=== PATIENT | female | born 1945 | race Caucasian/White ===

== ENCOUNTER 2017-09-30 07:48 | Inpatient (IN) | payer MEDICARE, MEDICAID ==
[~2017-09-30] VITALS: Ht 157.5 cm; Wt 57.0 kg
[~2017-09-30 07:48] MED LIST: ASPI-611 PO; ATEN50TA PO; CLOP75TA18 PO; FLUT1BLS3 IH; SIMV40TA PO; myrbetriq PO
[2017-09-30] MEDS ORDERED: methylPREDNISolone sod succ 125mg/2ml vial IV ONE (08:05)
[2017-09-30] MEDS ORDERED: ipratropium/albuterol 3ml nebule NEB ONE (08:05)
[2017-09-30 08:39] LABS: BASOPHILS # (AUTO) 0.1 X10'3 (0-0.2); BASOPHILS % (AUTO) 0.5 % (0-1); EOSINOPHILS # (AUTO) 0.1 X10'3 (0-0.9); EOSINOPHILS % (AUTO) 1.3 % (0-6); HEMATOCRIT 37.5 % (35.0-45.0); HEMOGLOBIN 12.8 g/dl (12.0-16.0); LYMPHOCYTES # (AUTO) 1.6 X10'3 (1.1-4.8); LYMPHOCYTES % (AUTO) 14.6 % (21-51); MEAN CORPUSCULAR HEMOGLOBIN 29.6 PG (27.0-31.0); MEAN CORPUSCULAR HGB CONC 34.1 % (33.0-36.5); MEAN CORPUSCULAR VOLUME 86.7 FL (78-98); MEAN PLATELET VOLUME 9.1 FL (7.4-10.4); MONOCYTES # (AUTO) 0.6 X10'3 (0-0.9); NEUTROPHILS # (AUTO) 8.7 X10'3 (1.8-7.7); NEUTROPHILS % (AUTO) 78.6 % (42-75); PLATELET COUNT 209 X10'3 (140-440); RED BLOOD COUNT 4.32 X10'6 (4.20-5.60); RED CELL DISTRIBUTION WIDTH 14.7 % (11.5-14.5); WHITE BLOOD COUNT 11.1 X10'3 (4.5-11.0)
[2017-09-30 08:49] LABS: PARTIAL THROMBOPLASTIN TIME 27 SECONDS (22-32); PROTHROMBIN TIME 10.1 SECONDS (9.0-12.0)
[2017-09-30 08:53] LABS: ALANINE AMINOTRANSFERASE 17 U/L (12-78); ALBUMIN 3.8 G/DL (3.4-5.0); ALBUMIN/GLOBULIN RATIO 1.1 (1.1-1.5); ALKALINE PHOSPHATASE 61 IU/L (46-116); ANION GAP 10 (8-16); ASPARTATE AMINO TRANSFERASE 18 U/L (10-37); BILIRUBIN,TOTAL 0.5 MG/DL (0.1-1.0); BLOOD UREA NITROGEN 8 MG/DL (7-18); BUN/CREATININE RATIO 8.9 (6.6-38.0); CALCIUM 8.6 MG/DL (8.5-10.1); CHLORIDE 103 MMOL/L (99-107); GLUCOSE 120 MG/DL (70-104); POTASSIUM 3.6 MMOL/L (3.5-5.1); SODIUM 141 MMOL/L (135-145); TOTAL CARBON DIOXIDE 28.4 MMOL/L (24-32); TOTAL PROTEIN 7.2 G/DL (6.4-8.2); eGFR 61 ML/MIN
[2017-09-30] MEDS ORDERED: normal saline 1000ML IV soln IV ONE (09:05)
[2017-09-30] MEDS ORDERED: levoFLOXACIN-Levaquin 750MG/D5 150 ML IV ONE (09:05)
[2017-09-30] MEDS ORDERED: ATEN-169 PO (09:27)
[2017-09-30] MEDS ORDERED: SERT25TA PO (09:27)
[2017-09-30] MEDS ORDERED: CLOP75TA35 PO (09:27)
[2017-09-30] MEDS ORDERED: FAMO20TA8 PO (09:27)
[2017-09-30] MEDS ORDERED: ZOC5T PO (09:27)
[2017-09-30] MEDS ORDERED: normal saline 1000ml 1,000 ML IV SCH (09:33)
[2017-09-30 09:35] LABS: ABG BASE EXCESS -1.7 mmol/L (-2.0-3.0); ABG HCO3 23.2 mmol/L (22.0-26.0); ABG OXYGEN SATURATION 87.7 % (95-98); ABG PCO2 (T) 40.1 mmHg (32.0-45.0); ABG PH (T) 7.381 (7.350-7.450); ABG PO2 (T) 53.6 mmHg (83-108); ALLEN'S TEST Positive; FMetHb 0.2 % (0.3-1.12); FO2Hb 86.6 % (94-100); TOTAL HEMOGLOBIN 13.2 G/dl (12.0-16.0)
[2017-09-30] MEDS ORDERED: magnesium/D5W IVPB 50 ML IV PRN (09:35)
[2017-09-30] MEDS ORDERED: magnesium hydroxide 30ml (MOM) UD suspension PO PRN (09:35)
[2017-09-30] MEDS ORDERED: mag hydrox/Alum hydrox/simeth 30ml oral suspension PO PRN (09:35)
[2017-09-30] MEDS ORDERED: albuterol 2.5 MG/3 ML nebule NEB PRN (09:35)
[2017-09-30] MEDS ORDERED: acetaminophen 325mg tablet PO PRN ×2 (09:35)
[2017-09-30] MEDS ORDERED: potassium Cl 40MEQ/NS 500ml 500 ML IV PRN ×2 (09:35)
[2017-09-30] MEDS ORDERED: magnesium 4gm in 100ml NS 100 ML IV PRN (09:35)
[2017-09-30] MEDS ORDERED: magnesium Cl slow-release 64mg tablet PO PRN (09:35)
[2017-09-30] MEDS ORDERED: ondansetron/PF 4mg/2ml inj IV PRN (09:35)
[2017-09-30] MEDS ORDERED: potassium Cl 20 mEq SR tablet PO PRN ×2 (09:35)
[2017-09-30 11:00] VITALS: BP 124/58
[2017-09-30] MEDS ORDERED: nicotine 14mg patch - 24hr TD ONE (14:40)
[2017-09-30] MEDS: traMADol 50MG tablet PO PRN (14:58)
[2017-09-30 18:00] VITALS: BP 130/76
[2017-09-30] MEDS ORDERED: LACTOSE-FREE FOOD 237ML (BOOST) PO SCH (18:00)
[2017-09-30] MEDS ORDERED: atorvastatin 20mg tablet PO SCH (21:00)
[2017-09-30] MEDS: famotidine 20mg tablet PO SCH (21:07)
[2017-09-30] MEDS: lactobacillus rhamnosus 10,000 MMU CELLS/CAPSULE PO SCH (21:07)
[2017-10-01] VITALS: BP 121/44
[2017-10-01] MEDS: traMADol 50MG tablet PO PRN (03:27)
[2017-10-01 05:11] LABS: BASOPHILS % (AUTO) 0.2 % (0-1); EOSINOPHILS % (AUTO) 0 % (0-6); HEMATOCRIT 30.3 % (35.0-45.0); HEMOGLOBIN 10.2 g/dl (12.0-16.0); LYMPHOCYTES % (AUTO) 12.2 % (21-51); MEAN CORPUSCULAR HEMOGLOBIN 29.3 PG (27.0-31.0); MEAN CORPUSCULAR HGB CONC 33.6 % (33.0-36.5); MEAN PLATELET VOLUME 9.1 FL (7.4-10.4); MONOCYTES # (AUTO) 0.6 X10'3 (0-0.9); NEUTROPHILS # (AUTO) 6.3 X10'3 (1.8-7.7); NEUTROPHILS % (AUTO) 79.6 % (42-75); PLATELET COUNT 171 X10'3 (140-440); RED BLOOD COUNT 3.49 X10'6 (4.20-5.60); RED CELL DISTRIBUTION WIDTH 14.5 % (11.5-14.5); WHITE BLOOD COUNT 7.9 X10'3 (4.5-11.0)
[2017-10-01 06:27] LABS: ALBUMIN 2.8 G/DL (3.4-5.0); ANION GAP 9 (8-16); BLOOD UREA NITROGEN 12 MG/DL (7-18); BUN/CREATININE RATIO 15.2 (6.6-38.0); CALCIUM 8.3 MG/DL (8.5-10.1); CHLORIDE 108 MMOL/L (99-107); CREATININE 0.79 MG/DL (0.40-0.90); GLUCOSE 118 MG/DL (70-104); MAGNESIUM 1.7 MG/DL (1.5-2.4); POTASSIUM 4.3 MMOL/L (3.5-5.1); SODIUM 141 MMOL/L (135-145); TOTAL CARBON DIOXIDE 24.5 MMOL/L (24-32); eGFR 71 ML/MIN
[2017-10-01 07:23] VITALS: BP 133/50
[2017-10-01] MEDS: lactobacillus rhamnosus 10,000 MMU CELLS/CAPSULE PO SCH (07:35)
[2017-10-01] MEDS: famotidine 20mg tablet PO SCH (07:35)
[2017-10-01] MEDS: albuterol 2.5 MG/3 ML nebule NEB PRN ×2 (07:48→12:20)
[2017-10-01] MEDS ORDERED: sertraline 25mg tablet PO SCH (08:00)
[2017-10-01] MEDS ORDERED: enoxaparin 40mg/0.4ml syringe SQ SCH (08:00)
[2017-10-01] MEDS ORDERED: clopidogrel 75mg tablet PO SCH (08:00)
[2017-10-01] MEDS ORDERED: atenolol 50mg tablet PO SCH (08:00)
[2017-10-01] MEDS ORDERED: methylPREDNISolone sod succ 125mg/2ml vial IV SCH (08:00)
[2017-10-01] MEDS ORDERED: CefTRIAXone 2gm/D5W 50ml 50 ML IV SCH (08:00)
[2017-10-01] MEDS ORDERED: nicotine 21mg patch - 24 hr TD SCH (08:00)
[2017-10-01] MEDS ORDERED: K and/or MAG REPLACEMENT MC SCH (08:00)
[2017-10-01] MEDS ORDERED: ALBU2.5V7 NEB (11:58)
[2017-10-01] MEDS ORDERED: PRED10TA23 PO (11:58)
[2017-10-01] MEDS ORDERED: LEVO500T2 PO (11:58)
[2017-10-01 12:10] VITALS: BP 110/50
[2017-10-01] MEDS ORDERED: NICO-731 TOP (14:32)
[2017-10-01] MEDS ORDERED: ADV50250 IH (14:32)
== END 2017-10-01 17:02 | disposition home or self-care (01) | DRG 189 ==
LOC: ER 07:51 → ED HOLD 09:33 → EDBEDREQ 10:14 → SUR 3N 10:57
PROVIDERS: ADMIT Internal Medicine; ATTEND Internal Medicine
DX: J96.01 Acute respiratory failure with hypoxia (principal); J44.1 Chronic obstructive pulmonary disease with (acute) exacerbation; J44.0 Chronic obstructive pulmonary disease with (acute) lower respiratory infection; J20.9 Acute bronchitis, unspecified; E78.00 Pure hypercholesterolemia, unspecified; F17.210 Nicotine dependence, cigarettes, uncomplicated; F41.9 Anxiety disorder, unspecified; I10 Essential (primary) hypertension; Z60.2 Problems related to living alone; I25.2 Old myocardial infarction; Z95.1 Presence of aortocoronary bypass graft; Z95.5 Presence of coronary angioplasty implant and graft; Z98.51 Tubal ligation status; Z88.5 Allergy status to narcotic agent; Z79.02 Long term (current) use of antithrombotics/antiplatelets; Z79.899 Other long term (current) drug therapy; Z82.49 Family history of ischemic heart disease and other diseases of the circulatory system; Z71.6 Tobacco abuse counseling
CPT/HCPCS: 36415; 36600; 71045; 80048; 80053; 82803; 83735; 84484; 85018; 85025; 85610; 85730; 87040; 87070; 94640; 94760; 96374; 99285; J0696; J1650; J1956; J2930; J7030

== ENCOUNTER 2019-04-27 13:43 | Observation (INO) | payer MEDICARE, MEDICAID ==
[~2019-04-27] VITALS: Ht 157.5 cm; Wt 59.1 kg
[~2019-04-27 13:43] MED LIST changes: +ALB0.5UD IH; -ASPI-611 PO; +ATEN-169 PO; -ATEN50TA PO; -CLOP75TA18 PO; -FLUT1BLS3 IH; +PANT-47 PO; +SERT25TA PO; -myrbetriq PO
[2019-04-27] MEDS ORDERED: methylPREDNISolone sod succ 125mg/2ml vial IV ONE (13:50)
[2019-04-27] MEDS ORDERED: normal saline 1000ML IV soln IVB ONE (13:50)
[2019-04-27] MEDS ORDERED: ipratropium/albuterol 3ml nebule NEB ONE (13:50)
[2019-04-27 14:12] LABS: BASOPHILS # (AUTO) 0.1 X10'3 (0-0.2); BASOPHILS % (AUTO) 0.9 % (0-1); EOSINOPHILS # (AUTO) 0.2 X10'3 (0-0.9); EOSINOPHILS % (AUTO) 3.3 % (0-6); HEMOGLOBIN 12.9 g/dl (12.0-16.0); LYMPHOCYTES # (AUTO) 1.9 X10'3 (1.1-4.8); LYMPHOCYTES % (AUTO) 27.6 % (21-51); MEAN CORPUSCULAR HEMOGLOBIN 28.7 PG (27.0-31.0); MEAN PLATELET VOLUME 8.6 FL (7.4-10.4); MONOCYTES # (AUTO) 0.6 X10'3 (0-0.9); NEUTROPHILS # (AUTO) 4.2 X10'3 (1.8-7.7); NEUTROPHILS % (AUTO) 60.2 % (42-75); PLATELET COUNT 212 X10'3 (140-440); RED BLOOD COUNT 4.48 X10'6 (4.20-5.60); RED CELL DISTRIBUTION WIDTH 14.9 % (11.5-14.5)
--- NOTE | 2019-04-27 14:17 | NUR ---
FRIEND MELODY PHONE NUMBER: [phone] [facility] WORKER, YOHANNES: [phone]
--- NOTE | 2019-04-27 14:18 | NUR ---
breathing tx underway;rt bedside
[2019-04-27 14:32] LABS: ALANINE AMINOTRANSFERASE 23 U/L (12-78); ALBUMIN/GLOBULIN RATIO 1.4 (1.1-1.5); ALKALINE PHOSPHATASE 68 IU/L (46-116); ANION GAP 8 (8-16); ASPARTATE AMINO TRANSFERASE 18 U/L (10-37); BILIRUBIN,TOTAL 0.3 MG/DL (0.1-1.0); BLOOD UREA NITROGEN 12 MG/DL (7-18); BUN/CREATININE RATIO 14.3 (6.6-38.0); CALCIUM 8.7 MG/DL (8.5-10.1); CHLORIDE 110 MMOL/L (99-107); CREATININE 0.84 MG/DL (0.40-0.90); GLUCOSE 90 MG/DL (70-104); POTASSIUM 4.6 MMOL/L (3.5-5.1); SODIUM 145 MMOL/L (135-145); TOTAL CARBON DIOXIDE 27.2 MMOL/L (24-32); TOTAL PROTEIN 6.9 G/DL (6.4-8.2); eGFR 66 ML/MIN
[2019-04-27] MEDS ORDERED: aspirin 81mg tab.chew PO ONE (15:20)
[2019-04-27] MEDS ORDERED: nitroGLYCERIN 1gm ointment UD TP ONE (15:20)
[2019-04-27] MEDS ORDERED: morphine 2 MG/ML inj. syringe IV PRN ×2 (15:30)
[2019-04-27] MEDS ORDERED: magnesium hydroxide 30ml (MOM) UD suspension PO PRN (15:30)
[2019-04-27] MEDS ORDERED: acetaminophen 325mg tablet PO PRN ×2 (15:30)
[2019-04-27] MEDS ORDERED: ondansetron/PF 4mg/2ml inj IV PRN (15:30)
[2019-04-27] MEDS ORDERED: mag hydrox/Alum hydrox/simeth 30ml oral suspension PO PRN (15:30)
[2019-04-27] MEDS ORDERED: ROPI0.5T2 PO (15:47)
[2019-04-27] MEDS ORDERED: PRED5DRO3 EACHEYE (15:47)
[2019-04-27] MEDS ORDERED: TRAM50TA2 PO (15:47)
[2019-04-27] MEDS ORDERED: ASPI-12 PO (15:58)
[2019-04-27] MEDS ORDERED: ATR0.5NEB NEB (16:01)
[2019-04-27 17:37] LABS: HEMOGLOBIN A1C 5.5 % (4.5-6.2)
[2019-04-27] MEDS: HYDROcodone/acetaminophen 5mg/325mg tablet PO PRN (17:49)
[2019-04-27 18:00] VITALS: BP_SYST 146; BP_SYST 151; BP_DIAS 62; BP_DIAS 68
--- NOTE | 2019-04-27 18:00 | NUR ---
Patient in room PADMINI 360. I have received report from MAIA GARCIA and had the opportunity to ask questions and assume patient care.
[2019-04-27] MEDS ORDERED: aspirin 325mg tablet, delayed-release (Ecotrin) PO PRN (18:05)
[2019-04-27] MEDS ORDERED: levoFLOXACIN-Levaquin 750MG/D5 150 ML IV SCH (18:24)
[2019-04-27] MEDS ORDERED: furosemide 20 MG/2 ML vial IV ONE (18:25)
--- NOTE | 2019-04-27 18:47 | NUR ---
Problems reprioritized. Patient report given, questions answered & plan of care reviewed with Aurora dorado.
[2019-04-27] MEDS: atorvastatin 20mg tablet PO SCH (21:16)
[2019-04-27] MEDS: ROPINIRole 0.25mg tablet PO SCH (21:16)
[2019-04-27] MEDS: atenolol 50mg tablet PO SCH (21:17)
[2019-04-27] MEDS: methylPREDNISolone sod succ 125mg/2ml vial IV SCH (23:15)
[2019-04-28] VITALS: BP 112/50
[2019-04-28 02:33] LABS: BASOPHILS % (AUTO) 0.2 % (0-1); EOSINOPHILS % (AUTO) 0 % (0-6); HEMOGLOBIN 12.1 g/dl (12.0-16.0); LYMPHOCYTES # (AUTO) 0.9 X10'3 (1.1-4.8); LYMPHOCYTES % (AUTO) 9.9 % (21-51); MEAN CORPUSCULAR HEMOGLOBIN 28.9 PG (27.0-31.0); MEAN CORPUSCULAR HGB CONC 33.7 g/dL (33.0-36.5); MEAN CORPUSCULAR VOLUME 85.8 FL (78-98); MEAN PLATELET VOLUME 8.8 FL (7.4-10.4); MONOCYTES # (AUTO) 0.1 X10'3 (0-0.9); MONOCYTES % (AUTO) 0.9 % (2-12); NEUTROPHILS # (AUTO) 7.7 X10'3 (1.8-7.7); PLATELET COUNT 213 X10'3 (140-440); RED CELL DISTRIBUTION WIDTH 14.2 % (11.5-14.5); WHITE BLOOD COUNT 8.6 X10'3 (4.5-11.0)
[2019-04-28 02:38] LABS: ALBUMIN 3.7 G/DL (3.4-5.0); ANION GAP 9 (8-16); BLOOD UREA NITROGEN 22 MG/DL (7-18); BUN/CREATININE RATIO 21.6 (6.6-38.0); CALCIUM 8.9 MG/DL (8.5-10.1); CHLORIDE 108 MMOL/L (99-107); CHOL/HDL RATIO 3.1 (0.00-4.99); CHOLESTEROL 138 MG/DL (0-200); CREATININE 1.02 MG/DL (0.40-0.90); GLUCOSE 147 MG/DL (70-104); HDL CHOLESTEROL 44 MG/DL (35-60); LDL CHOLESTEROL 82 MG/DL (50-100); POTASSIUM 3.9 MMOL/L (3.5-5.1); SODIUM 142 MMOL/L (135-145); TOTAL CARBON DIOXIDE 25.1 MMOL/L (24-32); TRIGLYCERIDES 50 MG/DL (20-135); eGFR 53 ML/MIN
--- NOTE | 2019-04-28 06:25 | NUR ---
Patient in room PADMINI 360. I have received report from RADHA Moyer and had the opportunity to ask questions and assume patient care.
--- NOTE | 2019-04-28 06:26 | NUR ---
Problems reprioritized. Patient report given, questions answered & plan of care reviewed with Patria RN.
[2019-04-28 06:30] VITALS: BP 137/54
[2019-04-28] MEDS: ipratropium 0.5 MG/2.5ML nebule NEB PRN ×2 (07:25→16:58)
[2019-04-28] MEDS: traMADol 50MG tablet PO SCH (09:20)
[2019-04-28] MEDS: methylPREDNISolone sod succ 125mg/2ml vial IV SCH ×2 (09:23→16:41)
[2019-04-28] MEDS: HYDROcodone/acetaminophen 5mg/325mg tablet PO PRN (10:50)
[2019-04-28 11:00] VITALS: BP 127/55
--- NOTE | 2019-04-28 11:53 | NUR ---
Malnutrition consult: Pt unsure if she has had any wt loss however reports a decrease in appetite per malnutrition risk screen with RN. All wt hx is pt stated however stable with current pt stated weight. Pt currently on heart healthy diet documented with 50-75% PO intake first meal then up to 100% at breakfast this morning meeting nutrient needs. Pt with no significant decrease in muscle strength or edema. Pt currently does not meet criteria for malnutrition. Will continue to follow. Addendum: 04/28/19 at [address] Amended: Links added.
--- NOTE | 2019-04-28 18:15 | NUR ---
Problems reprioritized. Patient report given, questions answered & plan of care reviewed with RADHA Mccormick.
--- NOTE | 2019-04-28 19:29 | NUR ---
Patient in room PADMINI 360. I have received report from Rimma GARCIA and Vesta GARCIA and had the opportunity to ask questions and assume patient care.
[2019-04-28] MEDS: lactobacillus rhamnosus 10,000 MMU CELLS/CAPSULE PO SCH (20:34)
[2019-04-28] MEDS: atorvastatin 20mg tablet PO SCH (20:35)
[2019-04-28] MEDS: atenolol 50mg tablet PO SCH (20:35)
[2019-04-28] MEDS: ROPINIRole 0.25mg tablet PO SCH (20:35)
[2019-04-29 00:20] VITALS: BP 111/44
[2019-04-29] MEDS: methylPREDNISolone sod succ 125mg/2ml vial IV SCH ×2 (00:39→09:12)
[2019-04-29 05:10] LABS: BASOPHILS % (AUTO) 0 % (0-1); EOSINOPHILS % (AUTO) 0 % (0-6); HEMATOCRIT 35.4 % (35.0-45.0); HEMOGLOBIN 11.8 g/dl (12.0-16.0); LYMPHOCYTES # (AUTO) 0.9 X10'3 (1.1-4.8); MEAN CORPUSCULAR HEMOGLOBIN 28.6 PG (27.0-31.0); MEAN CORPUSCULAR HGB CONC 33.4 g/dL (33.0-36.5); MEAN CORPUSCULAR VOLUME 85.7 FL (78-98); MONOCYTES # (AUTO) 0.2 X10'3 (0-0.9); MONOCYTES % (AUTO) 1.6 % (2-12); NEUTROPHILS # (AUTO) 13.8 X10'3 (1.8-7.7); NEUTROPHILS % (AUTO) 92.4 % (42-75); PLATELET COUNT 227 X10'3 (140-440); RED BLOOD COUNT 4.13 X10'6 (4.20-5.60); RED CELL DISTRIBUTION WIDTH 14.5 % (11.5-14.5); WHITE BLOOD COUNT 14.9 X10'3 (4.5-11.0)
[2019-04-29 05:22] LABS: ALBUMIN 3.5 G/DL (3.4-5.0); ANION GAP 8 (8-16); BLOOD UREA NITROGEN 28 MG/DL (7-18); BUN/CREATININE RATIO 31.5 (6.6-38.0); CALCIUM 8.6 MG/DL (8.5-10.1); CHLORIDE 109 MMOL/L (99-107); CREATININE 0.89 MG/DL (0.40-0.90); GLUCOSE 140 MG/DL (70-104); POTASSIUM 4.1 MMOL/L (3.5-5.1); SODIUM 142 MMOL/L (135-145); TOTAL CARBON DIOXIDE 24.8 MMOL/L (24-32); eGFR 62 ML/MIN
--- NOTE | 2019-04-29 06:25 | NUR ---
Patient in room PADMINI 360. I have received report from RADHA Mccormick and had the opportunity to ask questions and assume patient care.
[2019-04-29 06:30] VITALS: BP 149/50
--- NOTE | 2019-04-29 06:31 | NUR ---
Problems reprioritized. Patient report given, questions answered & plan of care reviewed with Patria RN.
[2019-04-29] MEDS: ipratropium 0.5 MG/2.5ML nebule NEB PRN ×2 (07:58→13:33)
[2019-04-29] MEDS: lactobacillus rhamnosus 10,000 MMU CELLS/CAPSULE PO SCH (09:12)
[2019-04-29] MEDS: traMADol 50MG tablet PO SCH (09:13)
[2019-04-29 11:00] VITALS: BP 136/58
[2019-04-29] MEDS ORDERED: levoFLOXACIN 750MG TABLET PO SCH (11:00)
[2019-04-29] MEDS ORDERED: LEVO750T21 PO (12:18)
[2019-04-29] MEDS ORDERED: PRED20TA PO (12:18)
--- NOTE | 2019-04-29 14:25 | NUR ---
DC inst provided to pt. IV DC'd, tip intact. All belongings sent w/pt. WC to front lobby.
--- NOTE | 2019-05-03 09:31 | NUR ---
Case Management DC follow up: spoke to pt via telephone: reports feeling better everyday, has not smoked since DC. Trying to stay busy to get mind of smoking. Stated patch gave her nightmares at the hospital, would like to try the nicotine gum instead. Pt has follow up erasmo 05/18/2019 w/PCP/Flor and will ask about other alternatives including magdy gum. pt states, "I like that ([facility] hospital, they take good care of me". Caregiver comes to home 3.5 hours each day to tend to pt needs. pt states she gets "a little winded" sometimes w/exertion et al, going out side to empty garbage, but denies excessive SOB, resp distress, cp, emergent general pain, NV, dizziness. Denies experiencing orthostatic hypotension w/position changes. pt has walker, but does not need to use it all the time. productive cough, drinking plenty of fluids, does not lie flat r/t lung expansion. Verbalizes understanding of meds and why prescribed, taking as ordered, no ase noted at this time. verbalizes understanding of s/s that would warrant 9-11/ER visit for evaluation. All needs met, questions answered at DC, no further questions at this time
== END 2019-04-29 14:27 | disposition home or self-care (01) ==
LOC: ER 13:44 → ED HOLD 15:28 → SUR 3N 17:55
PROVIDERS: ADMIT Internal Medicine; ATTEND Internal Medicine
DX: J44.1 Chronic obstructive pulmonary disease with (acute) exacerbation (principal); J44.0 Chronic obstructive pulmonary disease with (acute) lower respiratory infection; J20.9 Acute bronchitis, unspecified; I10 Essential (primary) hypertension; G25.0 Essential tremor; E78.5 Hyperlipidemia, unspecified; I25.2 Old myocardial infarction; E78.00 Pure hypercholesterolemia, unspecified; F17.210 Nicotine dependence, cigarettes, uncomplicated; Z95.5 Presence of coronary angioplasty implant and graft; Z98.51 Tubal ligation status; Z95.1 Presence of aortocoronary bypass graft; Z66 Do not resuscitate; Z79.51 Long term (current) use of inhaled steroids; Z79.899 Other long term (current) drug therapy; Z88.5 Allergy status to narcotic agent
CPT/HCPCS: 36415; 71045; 80048; 80053; 80061; 83036; 83880; 84484; 85025; 87081; 93005; 94640; 94760; 96365; 96375; 96376; 99284; G0378; J1940; J1956; J2930; J7030

== ENCOUNTER 2019-06-27 08:01 | Emergency (ER) | payer MEDICARE, MEDICAID ==
[~2019-06-27] VITALS: Ht 157.5 cm; Wt 58.6 kg
[~2019-06-27 08:01] MED LIST changes: -ALB0.5UD IH; +ASPI-12 PO; +ATR0.5NEB NEB; -PANT-47 PO; +ROPI0.5T4 PO; -SERT25TA PO; +TRAM50TA2 PO
[2019-06-27] MEDS ORDERED: ipratropium/albuterol 3ml nebule NEB ONE (08:10)
[2019-06-27] MEDS ORDERED: methylPREDNISolone sod succ 125mg/2ml vial IV ONE (08:10)
[2019-06-27 08:38] LABS: BASOPHILS # (AUTO) 0.1 X10'3 (0-0.2); EOSINOPHILS # (AUTO) 0.2 X10'3 (0-0.9); EOSINOPHILS % (AUTO) 2.5 % (0-6); HEMATOCRIT 40.2 % (35.0-45.0); HEMOGLOBIN 13.3 g/dl (12.0-16.0); LYMPHOCYTES # (AUTO) 2.4 X10'3 (1.1-4.8); LYMPHOCYTES % (AUTO) 31.3 % (21-51); MEAN CORPUSCULAR HEMOGLOBIN 28.8 PG (27.0-31.0); MEAN CORPUSCULAR HGB CONC 33.2 g/dL (33.0-36.5); MEAN CORPUSCULAR VOLUME 86.9 FL (78-98); MEAN PLATELET VOLUME 9.1 FL (7.4-10.4); MONOCYTES # (AUTO) 0.5 X10'3 (0-0.9); MONOCYTES % (AUTO) 6.9 % (2-12); NEUTROPHILS # (AUTO) 4.4 X10'3 (1.8-7.7); NEUTROPHILS % (AUTO) 58.3 % (42-75); PLATELET COUNT 205 X10'3 (140-440); RED BLOOD COUNT 4.63 X10'6 (4.20-5.60); WHITE BLOOD COUNT 7.6 X10'3 (4.5-11.0)
[2019-06-27 08:42] LABS: ALANINE AMINOTRANSFERASE 19 U/L (12-78); ALBUMIN 4.1 G/DL (3.4-5.0); ALBUMIN/GLOBULIN RATIO 1.3 (1.1-1.5); ALKALINE PHOSPHATASE 63 IU/L (46-116); ANION GAP 7 (8-16); ASPARTATE AMINO TRANSFERASE 21 U/L (10-37); BILIRUBIN,TOTAL 0.4 MG/DL (0.1-1.0); BLOOD UREA NITROGEN 12 MG/DL (7-18); BUN/CREATININE RATIO 13.5 (6.6-38.0); CALCIUM 9.3 MG/DL (8.5-10.1); CHLORIDE 108 MMOL/L (99-107); CREATININE 0.89 MG/DL (0.40-0.90); GLUCOSE 108 MG/DL (70-104); POTASSIUM 4.1 MMOL/L (3.5-5.1); SODIUM 143 MMOL/L (135-145); TOTAL CARBON DIOXIDE 27.9 MMOL/L (24-32); TOTAL PROTEIN 7.2 G/DL (6.4-8.2); eGFR 62 ML/MIN
[2019-06-27] MEDS ORDERED: PRED20TA PO (09:01)
[2019-06-27 09:47] VITALS: BP 134/71
== END 2019-06-27 09:38 | disposition home or self-care (01) ==
LOC: ER 08:01
DX: J44.1 Chronic obstructive pulmonary disease with (acute) exacerbation (principal); E78.00 Pure hypercholesterolemia, unspecified; I10 Essential (primary) hypertension; I25.2 Old myocardial infarction; F17.200 Nicotine dependence, unspecified, uncomplicated; Z95.0 Presence of cardiac pacemaker; Z98.51 Tubal ligation status; Z88.5 Allergy status to narcotic agent; Z79.899 Other long term (current) drug therapy
CPT/HCPCS: 36415; 71045; 80053; 83880; 85025; 93005; 94640; 96374; 99285; J2930; 94760

== ENCOUNTER 2020-01-31 11:55 | Emergency (ER) | payer MEDICARE, MEDICAID ==
[~2020-01-31] VITALS: Ht 157.5 cm; Wt 58.0 kg
[2020-01-31] MEDS ORDERED: predniSONE 20 mg tablet PO ONE (12:05)
[2020-01-31] MEDS ORDERED: ipratropium/albuterol 3ml nebule NEB ONE (12:05)
[2020-01-31 12:49] LABS: BASOPHILS % (AUTO) 0.7 % (0-1); EOSINOPHILS # (AUTO) 0.2 X10'3 (0-0.9); EOSINOPHILS % (AUTO) 3.1 % (0-6); HEMATOCRIT 37.1 % (35.0-45.0); HEMOGLOBIN 12.3 g/dl (12.0-16.0); LYMPHOCYTES # (AUTO) 2.2 X10'3 (1.1-4.8); LYMPHOCYTES % (AUTO) 33.5 % (21-51); MEAN CORPUSCULAR HEMOGLOBIN 29.2 PG (27.0-31.0); MEAN CORPUSCULAR HGB CONC 33.2 g/dL (33.0-36.5); MEAN CORPUSCULAR VOLUME 87.9 FL (78-98); MEAN PLATELET VOLUME 8.6 FL (7.4-10.4); MONOCYTES # (AUTO) 0.6 X10'3 (0-0.9); MONOCYTES % (AUTO) 8.7 % (2-12); NEUTROPHILS # (AUTO) 3.6 X10'3 (1.8-7.7); PLATELET COUNT 187 X10'3 (140-440); RED BLOOD COUNT 4.22 X10'6 (4.20-5.60); RED CELL DISTRIBUTION WIDTH 14.6 % (11.5-14.5); WHITE BLOOD COUNT 6.7 X10'3 (4.5-11.0)
[2020-01-31 13:08] LABS: ALANINE AMINOTRANSFERASE 11 U/L (12-78); ALBUMIN/GLOBULIN RATIO 1.4 (1.1-1.5); ALKALINE PHOSPHATASE 64 IU/L (46-116); ANION GAP 9 (8-16); ASPARTATE AMINO TRANSFERASE 18 U/L (10-37); BILIRUBIN,TOTAL 0.5 MG/DL (0.1-1.0); BLOOD UREA NITROGEN 16 MG/DL (7-18); BUN/CREATININE RATIO 20.8 (6.6-38.0); CALCIUM 8.9 MG/DL (8.5-10.1); CHLORIDE 104 MMOL/L (99-107); CREATININE 0.77 MG/DL (0.40-0.90); GLUCOSE 126 MG/DL (70-104); SODIUM 143 MMOL/L (135-145); TOTAL CARBON DIOXIDE 29.8 MMOL/L (24-32); TOTAL PROTEIN 6.9 G/DL (6.4-8.2); eGFR 73 ML/MIN
[2020-01-31] MEDS ORDERED: AZIT-72 PO (13:25)
[2020-01-31] MEDS ORDERED: PRED20TA PO (13:25)
[2020-01-31 13:38] VITALS: BP 130/57
== END 2020-01-31 13:45 | disposition home or self-care (01) ==
LOC: ER 11:56
DX: J44.1 Chronic obstructive pulmonary disease with (acute) exacerbation (principal); E78.00 Pure hypercholesterolemia, unspecified; I10 Essential (primary) hypertension; I21.9 Acute myocardial infarction, unspecified; F17.200 Nicotine dependence, unspecified, uncomplicated; R42 Dizziness and giddiness; Z98.890 Other specified postprocedural states; Z88.5 Allergy status to narcotic agent; Z88.1 Allergy status to other antibiotic agents; Z88.6 Allergy status to analgesic agent; Z88.8 Allergy status to other drugs, medicaments and biological substances
CPT/HCPCS: 36415; 71045; 80053; 83880; 84484; 85025; 93005; 94640; 99285; J7512; 94760

== ENCOUNTER 2020-06-18 21:51 | Emergency (ER) | payer MEDICARE, MEDICAID ==
[~2020-06-18] VITALS: Ht 157.5 cm; Wt 57.3 kg
[2020-06-18] MEDS ORDERED: acetaminophen 325mg tablet PO ONE (22:15)
[2020-06-18 22:27] LABS: BASOPHILS # (AUTO) 0.1 X10'3 (0-0.2); BASOPHILS % (AUTO) 0.7 % (0-1); EOSINOPHILS # (AUTO) 0.2 X10'3 (0-0.9); EOSINOPHILS % (AUTO) 2.4 % (0-6); HEMOGLOBIN 12.5 g/dl (12.0-16.0); LYMPHOCYTES # (AUTO) 2.7 X10'3 (1.1-4.8); LYMPHOCYTES % (AUTO) 27.1 % (21-51); MEAN CORPUSCULAR HEMOGLOBIN 28.9 PG (27.0-31.0); MEAN CORPUSCULAR HGB CONC 32.9 g/dL (33.0-36.5); MEAN CORPUSCULAR VOLUME 87.9 FL (78-98); MONOCYTES # (AUTO) 0.9 X10'3 (0-0.9); MONOCYTES % (AUTO) 8.8 % (2-12); PLATELET COUNT 246 X10'3 (140-440); RED BLOOD COUNT 4.32 X10'6 (4.20-5.60); RED CELL DISTRIBUTION WIDTH 14.4 % (11.5-14.5); WHITE BLOOD COUNT 9.8 X10'3 (4.5-11.0)
[2020-06-18 22:52] LABS: ALANINE AMINOTRANSFERASE 16 U/L (12-78); ALBUMIN/GLOBULIN RATIO 1.2 (1.1-1.5); ALKALINE PHOSPHATASE 76 IU/L (46-116); ANION GAP 8 (8-16); ASPARTATE AMINO TRANSFERASE 17 U/L (10-37); BILIRUBIN,TOTAL 0.3 MG/DL (0.1-1.0); BLOOD UREA NITROGEN 20 MG/DL (7-18); BUN/CREATININE RATIO 20.6 (6.6-38.0); CALCIUM 9.3 MG/DL (8.5-10.1); CHLORIDE 104 MMOL/L (99-107); CREATININE 0.97 MG/DL (0.40-0.90); GLUCOSE 102 MG/DL (70-104); POTASSIUM 4.9 MMOL/L (3.5-5.1); SODIUM 141 MMOL/L (135-145); TOTAL CARBON DIOXIDE 28.8 MMOL/L (24-32); TOTAL PROTEIN 7.3 G/DL (6.4-8.2); eGFR 56 ML/MIN
[2020-06-18] MEDS ORDERED: morphine 2 MG/ML inj. syringe IV ONE (23:35)
[2020-06-18] MEDS ORDERED: iohexol 350MG/ML 100ml bottle IV ONE (23:43)
--- NOTE | 2020-06-19 02:00 | NUR ---
asssumed care of patient resting peacfully supine . all vss , no changes to previous head to toe assessment . pt verbalizes being comfortable and denies any needs at this time . will continue to monitor and reassess as needed
--- NOTE | 2020-06-19 02:30 | NUR ---
pt up to bathrooom ambulated independently . pt notified that in patient room assignment will not occur until later this am . pt verbalized understanding . warm blankets given
--- NOTE | 2020-06-19 04:34 | NUR ---
UP OUT OF BED TO BATHROOM
[2020-06-19 05:19] VITALS: BP 115/58
== END 2020-06-19 05:15 | disposition home or self-care (01) ==
LOC: ER 21:51
DX: M79.602 Pain in left arm (principal); E78.00 Pure hypercholesterolemia, unspecified; I10 Essential (primary) hypertension; I25.2 Old myocardial infarction; J44.9 Chronic obstructive pulmonary disease, unspecified; Z95.5 Presence of coronary angioplasty implant and graft; Z86.718 Personal history of other venous thrombosis and embolism; Z98.51 Tubal ligation status; Z88.8 Allergy status to other drugs, medicaments and biological substances; Z79.899 Other long term (current) drug therapy; Z95.828 Presence of other vascular implants and grafts
CPT/HCPCS: 36415; 71045; 73206; 80053; 83880; 84484; 85025; 93005; 96374; 99285; J2270; Q9967

== ENCOUNTER 2021-03-23 16:47 | Emergency (ER) | payer MEDICARE, MEDICAID ==
[~2021-03-23] VITALS: Ht 157.5 cm; Wt 51.0 kg
[2021-03-23 17:02] VITALS: BP 166/69
[2021-03-23 17:30] LABS: BASOPHILS # (AUTO) 0.1 X10'3 (0-0.2); BASOPHILS % (AUTO) 0.9 % (0-1); EOSINOPHILS # (AUTO) 0.1 X10'3 (0-0.9); EOSINOPHILS % (AUTO) 1.6 % (0-6); HEMATOCRIT 36.2 % (35.0-45.0); LYMPHOCYTES # (AUTO) 1.8 X10'3 (1.1-4.8); LYMPHOCYTES % (AUTO) 26.7 % (21-51); MEAN CORPUSCULAR HEMOGLOBIN 29.4 PG (27.0-31.0); MEAN CORPUSCULAR VOLUME 89.1 FL (78-98); MEAN PLATELET VOLUME 8.6 FL (7.4-10.4); MONOCYTES # (AUTO) 0.5 X10'3 (0-0.9); MONOCYTES % (AUTO) 7.8 % (2-12); NEUTROPHILS # (AUTO) 4.2 X10'3 (1.8-7.7); PLATELET COUNT 237 X10'3 (140-440); RED BLOOD COUNT 4.07 X10'6 (4.20-5.60); RED CELL DISTRIBUTION WIDTH 14.6 % (11.5-14.5); WHITE BLOOD COUNT 6.7 X10'3 (4.5-11.0)
[2021-03-23 17:45] LABS: ALANINE AMINOTRANSFERASE 18 U/L (12-78); ALBUMIN 4.2 G/DL (3.4-5.0); ALBUMIN/GLOBULIN RATIO 1.3 (1.1-1.5); ALKALINE PHOSPHATASE 54 IU/L (46-116); ANION GAP 9 (8-16); ASPARTATE AMINO TRANSFERASE 15 U/L (10-37); BILIRUBIN,TOTAL 0.4 MG/DL (0.1-1.0); BLOOD UREA NITROGEN 23 MG/DL (7-18); BUN/CREATININE RATIO 24.7 (6.6-38.0); CALCIUM 9.2 MG/DL (8.5-10.1); CHLORIDE 106 MMOL/L (99-107); CREATININE 0.93 MG/DL (0.40-0.90); GLUCOSE 103 MG/DL (70-104); POTASSIUM 3.9 MMOL/L (3.5-5.1); SODIUM 144 MMOL/L (135-145); TOTAL CARBON DIOXIDE 28.6 MMOL/L (24-32); TOTAL PROTEIN 7.4 G/DL (6.4-8.2); eGFR 58 ML/MIN
== END 2021-03-23 19:13 | disposition home or self-care (01) ==
LOC: ER 16:48
DX: M79.602 Pain in left arm (principal); E78.00 Pure hypercholesterolemia, unspecified; I10 Essential (primary) hypertension; I25.2 Old myocardial infarction; J44.9 Chronic obstructive pulmonary disease, unspecified; Z95.5 Presence of coronary angioplasty implant and graft; Z98.51 Tubal ligation status; Z79.899 Other long term (current) drug therapy; Z79.82 Long term (current) use of aspirin
CPT/HCPCS: 36415; 71045; 80053; 83880; 84484; 85025; 99284

== ENCOUNTER 2021-09-30 20:18 | Inpatient (IN) | payer MEDICARE, MEDICAID ==
[~2021-09-30] VITALS: Ht 157.5 cm; Wt 51.8 kg
[~2021-09-30 20:18] MED LIST changes: +ALBU17AE26 PO; -ASPI-12 PO; -ATR0.5NEB NEB; +CARB1TAB36 PO; +HYDR-3972 PO; +PANT-47 PO; -ROPI0.5T4 PO; +ROPI1TAB6 PO; -TRAM50TA2 PO
[2021-09-30 21:47] LABS: BASOPHILS % (AUTO) 0.8 % (0-1); EOSINOPHILS # (AUTO) 0.2 X10'3 (0-0.9); LYMPHOCYTES # (AUTO) 1.3 X10'3 (1.1-4.8); LYMPHOCYTES % (AUTO) 22.7 % (21-51); MEAN CORPUSCULAR HEMOGLOBIN 27.8 PG (27.0-31.0); MEAN CORPUSCULAR HGB CONC 32.1 g/dL (33.0-36.5); MEAN CORPUSCULAR VOLUME 86.6 FL (78-98); MEAN PLATELET VOLUME 7.9 FL (7.4-10.4); MONOCYTES # (AUTO) 0.7 X10'3 (0-0.9); MONOCYTES % (AUTO) 11.1 % (2-12); NEUTROPHILS # (AUTO) 3.6 X10'3 (1.8-7.7); NEUTROPHILS % (AUTO) 61.4 % (42-75); PLATELET COUNT 395 X10'3 (140-440); RED BLOOD COUNT 2.14 X10'6 (4.20-5.60); RED CELL DISTRIBUTION WIDTH 15.2 % (11.5-14.5); WHITE BLOOD COUNT 5.9 X10'3 (4.5-11.0)
[2021-09-30 22:00] LABS: HEMATOCRIT 18.6 % (35.0-45.0)
[2021-09-30 22:02] LABS: ALANINE AMINOTRANSFERASE 8 U/L (12-78); ALBUMIN 3.2 G/DL (3.4-5.0); ALBUMIN/GLOBULIN RATIO 0.9 (1.1-1.5); ALKALINE PHOSPHATASE 57 IU/L (46-116); ANION GAP 10 (8-16); ASPARTATE AMINO TRANSFERASE 12 U/L (10-37); BILIRUBIN,TOTAL 0.2 MG/DL (0.1-1.0); BLOOD UREA NITROGEN 17 MG/DL (7-18); BUN/CREATININE RATIO 18.5 (6.6-38.0); CALCIUM 8.8 MG/DL (8.5-10.1); CHLORIDE 108 MMOL/L (99-107); CREATININE 0.92 MG/DL (0.40-0.90); GLUCOSE 109 MG/DL (70-104); POTASSIUM 3.8 MMOL/L (3.5-5.1); SODIUM 144 MMOL/L (135-145); TOTAL CARBON DIOXIDE 26.4 MMOL/L (24-32); TOTAL PROTEIN 6.6 G/DL (6.4-8.2); eGFR 59 ML/MIN
[2021-09-30] MEDS ORDERED: ROPI1TAB6 PO (22:58)
[2021-09-30] MEDS ORDERED: pantoprazole IV 80 MG in normal saline 100ml IV soln 100 ML IV ONE (23:00)
[2021-09-30] MEDS ORDERED: ondansetron/PF 4mg/2ml inj IV PRN (23:00)
[2021-09-30] MEDS ORDERED: acetaminophen 325mg tablet PO PRN ×2 (23:00)
[2021-09-30] MEDS ORDERED: POTASSIUM BICARB 20meq eff tab 20 MEQ TABLET.EFF PO PRN ×2 (23:00)
[2021-09-30] MEDS ORDERED: potassium CL 10mEq/100ml bag 100 ML IV PRN (23:00)
[2021-09-30] MEDS ORDERED: magnesium 4gm in 100ml NS 100 ML IV PRN (23:00)
[2021-09-30] MEDS ORDERED: magnesium hydroxide 30ml (MOM) UD suspension PO PRN (23:00)
[2021-09-30] MEDS ORDERED: magnesium Cl slow-release 64mg tablet PO PRN (23:00)
[2021-09-30] MEDS ORDERED: magnesium 2GM in 50ml NS 50 ML IV PRN (23:00)
[2021-09-30] MEDS ORDERED: HYDROcodone/acetaminophen 5mg/325mg tablet PO PRN (23:00)
[2021-09-30] MEDS ORDERED: mag hydrox/Alum hydrox/simeth 30ml oral suspension PO PRN (23:00)
[2021-09-30] MEDS ORDERED: ROPINIRole 1mg tablet PO STA (23:28)
[2021-09-30] MEDS ORDERED: HYDROcodone/acetaminophen 10/325mg tab PO ONE (23:30)
[2021-09-30 23:46] LABS: MAGNESIUM 2.1 MG/DL (1.5-2.4); POTASSIUM 3.8 MMOL/L (3.5-5.1)
[2021-10-01] VITALS (9 sets, daily range): BP systolic 109–140; BP diastolic 46–95
[2021-10-01] MEDS ORDERED: non-formulary drug (Albuterol 2 PUFFS) PO PRN (00:20)
[2021-10-01] MEDS ORDERED: HYDROcodone/acetaminophen 10/325mg tab PO PRN (00:20)
--- NOTE | 2021-10-01 00:37 | NUR ---
cbc needs to be ordered q6hrs. first lab 0635.
[2021-10-01] MEDS ORDERED: pantoprazole 40MG/NS 100ML BAG 100 ML IV SCH ×2 (01:00→08:25)
[2021-10-01] MEDS: dextrose 5%-1/2 normal saline 1,000 ML IV SCH ×2 (01:20→10:40)
[2021-10-01] MEDS: pantoprazole 40MG/NS 100ML BAG 100 ML IV SCH ×5 (01:21→21:00)
[2021-10-01 04:27] LABS: BASOPHILS # (AUTO) 0.1 X10'3 (0-0.2); BASOPHILS % (AUTO) 1.1 % (0-1); EOSINOPHILS # (AUTO) 0.2 X10'3 (0-0.9); EOSINOPHILS % (AUTO) 2.5 % (0-6); HEMATOCRIT 22.7 % (35.0-45.0); HEMOGLOBIN 7.3 g/dl (12.0-16.0); LYMPHOCYTES # (AUTO) 1.4 X10'3 (1.1-4.8); LYMPHOCYTES % (AUTO) 22.4 % (21-51); MEAN CORPUSCULAR HEMOGLOBIN 27.1 PG (27.0-31.0); MEAN CORPUSCULAR HGB CONC 32.3 g/dL (33.0-36.5); MEAN CORPUSCULAR VOLUME 83.9 FL (78-98); MEAN PLATELET VOLUME 7.9 FL (7.4-10.4); MONOCYTES # (AUTO) 0.6 X10'3 (0-0.9); MONOCYTES % (AUTO) 9.1 % (2-12); NEUTROPHILS # (AUTO) 4.2 X10'3 (1.8-7.7); NEUTROPHILS % (AUTO) 64.9 % (42-75); PLATELET COUNT 316 X10'3 (140-440); RED CELL DISTRIBUTION WIDTH 15.2 % (11.5-14.5); WHITE BLOOD COUNT 6.4 X10'3 (4.5-11.0)
[2021-10-01 04:37] LABS: ALANINE AMINOTRANSFERASE 11 U/L (12-78); ALBUMIN 2.8 G/DL (3.4-5.0); ALBUMIN/GLOBULIN RATIO 0.9 (1.1-1.5); ALKALINE PHOSPHATASE 44 IU/L (46-116); ANION GAP 8 (8-16); ASPARTATE AMINO TRANSFERASE 12 U/L (10-37); BILIRUBIN,TOTAL 0.5 MG/DL (0.1-1.0); BLOOD UREA NITROGEN 15 MG/DL (7-18); BUN/CREATININE RATIO 18.1 (6.6-38.0); CALCIUM 8.4 MG/DL (8.5-10.1); CHLORIDE 110 MMOL/L (99-107); CREATININE 0.83 MG/DL (0.40-0.90); GLUCOSE 125 MG/DL (70-104); MAGNESIUM 1.9 MG/DL (1.5-2.4); POTASSIUM 3.7 MMOL/L (3.5-5.1); SODIUM 145 MMOL/L (135-145); TOTAL CARBON DIOXIDE 27.3 MMOL/L (24-32); TOTAL PROTEIN 5.8 G/DL (6.4-8.2); eGFR 66 ML/MIN
[2021-10-01 06:54] LABS: BASOPHILS % (AUTO) 0.6 % (0-1); EOSINOPHILS # (AUTO) 0.2 X10'3 (0-0.9); EOSINOPHILS % (AUTO) 2.8 % (0-6); LYMPHOCYTES # (AUTO) 1.2 X10'3 (1.1-4.8); LYMPHOCYTES % (AUTO) 21.6 % (21-51); MEAN CORPUSCULAR HEMOGLOBIN 27.7 PG (27.0-31.0); MEAN CORPUSCULAR VOLUME 83.9 FL (78-98); MEAN PLATELET VOLUME 7.6 FL (7.4-10.4); MONOCYTES # (AUTO) 0.6 X10'3 (0-0.9); MONOCYTES % (AUTO) 10.5 % (2-12); NEUTROPHILS # (AUTO) 3.7 X10'3 (1.8-7.7); NEUTROPHILS % (AUTO) 64.5 % (42-75); PLATELET COUNT 320 X10'3 (140-440); RED CELL DISTRIBUTION WIDTH 15.3 % (11.5-14.5); WHITE BLOOD COUNT 5.7 X10'3 (4.5-11.0)
[2021-10-01] MEDS: albuterol 2.5 MG/3 ML nebule NEB PRN ×4 (06:58→20:56)
[2021-10-01 07:07] LABS: HEMOGLOBIN 6.4 g/dl (12.0-16.0)
[2021-10-01 07:08] LABS: HEMATOCRIT 19.3 % (35.0-45.0)
[2021-10-01] MEDS ORDERED: pantoprazole 40mg Tablet.DR PO SCH (08:00)
[2021-10-01] MEDS: carbidoba-levodopa 25-100mg tablet PO SCH ×4 (08:19→21:34)
[2021-10-01] MEDS: atorvastatin 20mg tablet PO SCH (08:19)
[2021-10-01] MEDS: docusate sod 100mg capsule PO SCH ×2 (08:20→19:45)
[2021-10-01] MEDS: K and/or MAG REPLACEMENT MC SCH ×2 (08:22→19:43)
[2021-10-01] MEDS: ROPINIRole 1mg tablet PO PRN (08:45)
--- NOTE | 2021-10-01 16:12 | NUR ---
received report from RADHA Moreland in ER
--- NOTE | 2021-10-01 16:14 | NUR ---
report called to Vesta GARCIA
--- NOTE | 2021-10-01 16:25 | NUR ---
pt arrived to room 3012C via [facility].
[2021-10-01 17:03] LABS: HEMATOCRIT 22.5 % (35.0-45.0); HEMOGLOBIN 7.5 g/dl (12.0-16.0); MEAN CORPUSCULAR HEMOGLOBIN 27.7 PG (27.0-31.0); MEAN CORPUSCULAR HGB CONC 33.3 g/dL (33.0-36.5); MEAN CORPUSCULAR VOLUME 83.4 FL (78-98); MEAN PLATELET VOLUME 7.9 FL (7.4-10.4); PLATELET COUNT 298 X10'3 (140-440); RED BLOOD COUNT 2.69 X10'6 (4.20-5.60); RED CELL DISTRIBUTION WIDTH 14.8 % (11.5-14.5); WHITE BLOOD COUNT 6.6 X10'3 (4.5-11.0)
[2021-10-01] MEDS ORDERED: LIDOcaine Viscous 15ml cup ONE (18:22)
[2021-10-01] MEDS ORDERED: MIDAZolam 1 MG/ML 5ML VIAL ONE (18:22)
[2021-10-01] MEDS ORDERED: fentaNYL/PF 50MCG/1 ML 2ML syringe ONE (18:22)
--- NOTE | 2021-10-01 18:27 | NUR ---
Problems reprioritized. Patient report given, questions answered & plan of care reviewed with RADHA Wheeler.
[2021-10-01] MEDS ORDERED: non-formulary drug (Simvastatin (Zocor) 1 TAB) PO SCH (21:00)
[2021-10-01] MEDS: atenolol 50mg tablet PO SCH (21:34)
[2021-10-01] MEDS: HYDROcodone/acetaminophen 10/325mg tab PO PRN (21:46)
[2021-10-02] VITALS (17 sets, daily range): BP systolic 115–155; BP diastolic 50–83
[2021-10-02] MEDS: dextrose 5%-1/2 normal saline 1,000 ML IV SCH ×2 (00:50→11:51)
[2021-10-02] MEDS: pantoprazole 40MG/NS 100ML BAG 100 ML IV SCH ×2 (00:51→05:58)
[2021-10-02] MEDS: HYDROcodone/acetaminophen 10/325mg tab PO PRN ×3 (03:13→16:35)
[2021-10-02] MEDS: albuterol 2.5 MG/3 ML nebule NEB PRN ×2 (04:02→22:45)
--- NOTE | 2021-10-02 06:32 | NUR ---
Problems reprioritized. Patient report given, questions answered & plan of care reviewed with RADHA Guillen.
[2021-10-02 07:41] LABS: BASOPHILS % (AUTO) 0.5 % (0-1); EOSINOPHILS # (AUTO) 0.2 X10'3 (0-0.9); EOSINOPHILS % (AUTO) 2.7 % (0-6); HEMATOCRIT 22.7 % (35.0-45.0); HEMOGLOBIN 7.5 g/dl (12.0-16.0); LYMPHOCYTES # (AUTO) 1.2 X10'3 (1.1-4.8); LYMPHOCYTES % (AUTO) 20.1 % (21-51); MEAN CORPUSCULAR HEMOGLOBIN 27.8 PG (27.0-31.0); MEAN CORPUSCULAR HGB CONC 32.9 g/dL (33.0-36.5); MEAN CORPUSCULAR VOLUME 84.5 FL (78-98); MEAN PLATELET VOLUME 7.8 FL (7.4-10.4); MONOCYTES # (AUTO) 0.6 X10'3 (0-0.9); MONOCYTES % (AUTO) 10.6 % (2-12); NEUTROPHILS % (AUTO) 66.1 % (42-75); PLATELET COUNT 302 X10'3 (140-440); RED BLOOD COUNT 2.69 X10'6 (4.20-5.60); RED CELL DISTRIBUTION WIDTH 15.5 % (11.5-14.5); WHITE BLOOD COUNT 6.1 X10'3 (4.5-11.0)
[2021-10-02] MEDS: K and/or MAG REPLACEMENT MC SCH ×2 (07:58→20:00)
[2021-10-02] MEDS: docusate sod 100mg capsule PO SCH ×2 (07:58→20:00)
[2021-10-02] MEDS: carbidoba-levodopa 25-100mg tablet PO SCH ×4 (08:00→20:01)
[2021-10-02] MEDS ORDERED: pantoprazole 40mg Tablet.DR PO SCH (08:00)
[2021-10-02 08:08] LABS: ALANINE AMINOTRANSFERASE 7 U/L (12-78); ALBUMIN 2.6 G/DL (3.4-5.0); ALKALINE PHOSPHATASE 39 IU/L (46-116); ANION GAP 6 (8-16); ASPARTATE AMINO TRANSFERASE 15 U/L (10-37); BILIRUBIN,TOTAL 0.5 MG/DL (0.1-1.0); BLOOD UREA NITROGEN 7 MG/DL (7-18); BUN/CREATININE RATIO 9.1 (6.6-38.0); CALCIUM 8.3 MG/DL (8.5-10.1); CHLORIDE 113 MMOL/L (99-107); CREATININE 0.77 MG/DL (0.40-0.90); GLUCOSE 95 MG/DL (70-104); MAGNESIUM 1.7 MG/DL (1.5-2.4); POTASSIUM 3.6 MMOL/L (3.5-5.1); SODIUM 144 MMOL/L (135-145); TOTAL CARBON DIOXIDE 25.2 MMOL/L (24-32); TOTAL PROTEIN 5.3 G/DL (6.4-8.2); eGFR 73 ML/MIN
[2021-10-02] MEDS ORDERED: fentaNYL/PF 50MCG/1 ML 2ML syringe ONE (08:27)
[2021-10-02] MEDS ORDERED: LIDOcaine Viscous 15ml cup ONE (08:27)
[2021-10-02] MEDS ORDERED: MIDAZolam 1 MG/ML 5ML VIAL ONE (08:27)
[2021-10-02] MEDS: ROPINIRole 1mg tablet PO PRN (11:48)
[2021-10-02] MEDS: atorvastatin 20mg tablet PO SCH (11:49)
[2021-10-02] MEDS: pantoprazole 40mg Tablet.DR PO SCH (16:36)
--- NOTE | 2021-10-02 19:41 | NUR ---
Patient in room PCU 3010. I have received report from Mindy RN and had the opportunity to ask questions and assume patient care.
[2021-10-02] MEDS: atenolol 50mg tablet PO SCH (20:02)
[2021-10-03] MEDS: dextrose 5%-1/2 normal saline 1,000 ML IV SCH ×2 (01:11→05:32)
[2021-10-03 02:00] VITALS: BP 137/63
--- NOTE | 2021-10-03 06:41 | NUR ---
Problems reprioritized. Patient report given, questions answered & plan of care reviewed with ALYCE GARCIA.
[2021-10-03 06:46] LABS: ALANINE AMINOTRANSFERASE 6 U/L (12-78); ALBUMIN 2.7 G/DL (3.4-5.0); ALBUMIN/GLOBULIN RATIO 0.9 (1.1-1.5); ALKALINE PHOSPHATASE 44 IU/L (46-116); ANION GAP 9 (8-16); ASPARTATE AMINO TRANSFERASE 12 U/L (10-37); BASOPHILS % (AUTO) 0.4 % (0-1); BILIRUBIN,TOTAL 0.4 MG/DL (0.1-1.0); BLOOD UREA NITROGEN 7 MG/DL (7-18); BUN/CREATININE RATIO 11.1 (6.6-38.0); CALCIUM 8.4 MG/DL (8.5-10.1); CHLORIDE 110 MMOL/L (99-107); CREATININE 0.63 MG/DL (0.40-0.90); EOSINOPHILS # (AUTO) 0.3 X10'3 (0-0.9); EOSINOPHILS % (AUTO) 4.7 % (0-6); GLUCOSE 104 MG/DL (70-104); HEMATOCRIT 25.2 % (35.0-45.0); HEMOGLOBIN 8.3 g/dl (12.0-16.0); LYMPHOCYTES # (AUTO) 1.1 X10'3 (1.1-4.8); LYMPHOCYTES % (AUTO) 15.1 % (21-51); MAGNESIUM 1.8 MG/DL (1.5-2.4); MEAN CORPUSCULAR HEMOGLOBIN 27.5 PG (27.0-31.0); MEAN CORPUSCULAR HGB CONC 32.8 g/dL (33.0-36.5); MEAN CORPUSCULAR VOLUME 83.9 FL (78-98); MEAN PLATELET VOLUME 7.7 FL (7.4-10.4); MONOCYTES # (AUTO) 0.7 X10'3 (0-0.9); MONOCYTES % (AUTO) 9.7 % (2-12); NEUTROPHILS % (AUTO) 70.1 % (42-75); PLATELET COUNT 331 X10'3 (140-440); POTASSIUM 3.7 MMOL/L (3.5-5.1); RED CELL DISTRIBUTION WIDTH 15.3 % (11.5-14.5); SODIUM 146 MMOL/L (135-145); TOTAL CARBON DIOXIDE 27.2 MMOL/L (24-32); TOTAL PROTEIN 5.6 G/DL (6.4-8.2); WHITE BLOOD COUNT 7.2 X10'3 (4.5-11.0); eGFR > 90 ML/MIN
[2021-10-03 07:00] VITALS: BP 146/61
[2021-10-03] MEDS: K and/or MAG REPLACEMENT MC SCH (08:00)
[2021-10-03] MEDS: docusate sod 100mg capsule PO SCH (10:42)
[2021-10-03] MEDS: carbidoba-levodopa 25-100mg tablet PO SCH (10:42)
[2021-10-03] MEDS: atorvastatin 20mg tablet PO SCH (10:42)
[2021-10-03] MEDS: pantoprazole 40mg Tablet.DR PO SCH (10:42)
[2021-10-03] MEDS: HYDROcodone/acetaminophen 10/325mg tab PO PRN (10:47)
[2021-10-03] MEDS ORDERED: SUCR1TAB34 PO (11:01)
[2021-10-14 15:15] LABS: OCCULT BLOOD STOOL POSITIVE (Neg)
== END 2021-10-03 14:38 | disposition home or self-care (01) | DRG 812 ==
LOC: ER 20:19 → ED HOLD 23:09 → PCU 3S 10-01 16:37
PROVIDERS: ADMIT Internal Medicine; ATTEND Family Medicine
PROC: 30233N1 Transfusion of Nonautologous Red Blood Cells into Peripheral Vein, Percutaneous Approach (ICD-10-PCS; 2021-10-01)
PROC: 0DB78ZX Excision of Stomach, Pylorus, Via Natural or Artificial Opening Endoscopic, Diagnostic (ICD-10-PCS; principal; 2021-10-02)
DX: D62 Acute posthemorrhagic anemia (principal); K92.2 Gastrointestinal hemorrhage, unspecified; G25.81 Restless legs syndrome; J44.9 Chronic obstructive pulmonary disease, unspecified; E78.00 Pure hypercholesterolemia, unspecified; Z60.2 Problems related to living alone; G20 Parkinson's disease; Z66 Do not resuscitate; G89.4 Chronic pain syndrome; F17.210 Nicotine dependence, cigarettes, uncomplicated; E78.5 Hyperlipidemia, unspecified; I10 Essential (primary) hypertension; Z95.1 Presence of aortocoronary bypass graft; I25.2 Old myocardial infarction; Z95.5 Presence of coronary angioplasty implant and graft; Z91.19 Patient's noncompliance with other medical treatment and regimen; Z88.5 Allergy status to narcotic agent; Z98.51 Tubal ligation status; Z79.899 Other long term (current) drug therapy; Z71.6 Tobacco abuse counseling
CPT/HCPCS: 36415; 36430; 43239; 71045; 80053; 82272; 83735; 83880; 84132; 84484; 85025; 85027; 86885; 86900; 86901; 86920; 87081; 88305; 88342; 93005; 94640; 94760; 99152; 99285; A4615; A4620; C9113; G0378; J2250; J3010; J3490; J7030; J7040; J7042; J7050; P9016

== ENCOUNTER 2021-10-08 13:19 | Emergency (ER) | payer MEDICARE, MEDICAID ==
[~2021-10-08] VITALS: Ht 157.5 cm; Wt 51.8 kg
[~2021-10-08 13:19] MED LIST changes: +SUCR1TAB34 PO
[2021-10-08 14:14] LABS: BASOPHILS % (AUTO) 0.6 % (0-1); EOSINOPHILS # (AUTO) 0.1 X10'3 (0-0.9); EOSINOPHILS % (AUTO) 1.2 % (0-6); HEMATOCRIT 25.9 % (35.0-45.0); HEMOGLOBIN 8.3 g/dl (12.0-16.0); LYMPHOCYTES # (AUTO) 0.9 X10'3 (1.1-4.8); LYMPHOCYTES % (AUTO) 12.4 % (21-51); MEAN CORPUSCULAR HEMOGLOBIN 26.4 PG (27.0-31.0); MEAN CORPUSCULAR VOLUME 82.6 FL (78-98); MEAN PLATELET VOLUME 7.6 FL (7.4-10.4); MONOCYTES % (AUTO) 13.9 % (2-12); NEUTROPHILS % (AUTO) 71.9 % (42-75); PLATELET COUNT 253 X10'3 (140-440); RED BLOOD COUNT 3.14 X10'6 (4.20-5.60); RED CELL DISTRIBUTION WIDTH 15.4 % (11.5-14.5)
[2021-10-08 14:28] LABS: ALANINE AMINOTRANSFERASE 11 U/L (12-78); ALBUMIN/GLOBULIN RATIO 0.9 (1.1-1.5); ALKALINE PHOSPHATASE 53 IU/L (46-116); ANION GAP 10 (8-16); ASPARTATE AMINO TRANSFERASE 13 U/L (10-37); BILIRUBIN,TOTAL 0.3 MG/DL (0.1-1.0); BLOOD UREA NITROGEN 16 MG/DL (7-18); CALCIUM 8.5 MG/DL (8.5-10.1); CHLORIDE 104 MMOL/L (99-107); CREATININE 0.89 MG/DL (0.40-0.90); GLUCOSE 118 MG/DL (70-104); POTASSIUM 3.8 MMOL/L (3.5-5.1); SODIUM 142 MMOL/L (135-145); TOTAL CARBON DIOXIDE 28.5 MMOL/L (24-32); TOTAL PROTEIN 6.2 G/DL (6.4-8.2); eGFR 61 ML/MIN
[2021-10-08 15:48] VITALS: BP 131/64
== END 2021-10-08 16:52 | disposition home or self-care (01) ==
LOC: ER 13:20
DX: R06.02 Shortness of breath (principal); R07.9 Chest pain, unspecified; E78.00 Pure hypercholesterolemia, unspecified; I10 Essential (primary) hypertension; J44.9 Chronic obstructive pulmonary disease, unspecified; Z88.5 Allergy status to narcotic agent; Z79.899 Other long term (current) drug therapy
CPT/HCPCS: 36415; 71045; 80053; 83880; 84484; 85025; 93005; 99285

== ENCOUNTER 2021-10-29 13:57 | Emergency (ER) | payer MEDICARE, MEDICAID ==
[~2021-10-29] VITALS: Ht 157.5 cm; Wt 51.8 kg
[2021-10-29 14:01] VITALS: BP 144/64
[2021-10-29 14:30] LABS: BASOPHILS # (AUTO) 0.1 X10'3 (0-0.2); BASOPHILS % (AUTO) 0.9 % (0-1); EOSINOPHILS # (AUTO) 0.2 X10'3 (0-0.9); EOSINOPHILS % (AUTO) 2.5 % (0-6); HEMATOCRIT 27.7 % (35.0-45.0); HEMOGLOBIN 8.9 g/dl (12.0-16.0); LYMPHOCYTES # (AUTO) 1.4 X10'3 (1.1-4.8); LYMPHOCYTES % (AUTO) 18.3 % (21-51); MEAN CORPUSCULAR HEMOGLOBIN 25.1 PG (27.0-31.0); MEAN CORPUSCULAR VOLUME 78.3 FL (78-98); MEAN PLATELET VOLUME 8.2 FL (7.4-10.4); MONOCYTES # (AUTO) 0.6 X10'3 (0-0.9); NEUTROPHILS # (AUTO) 5.3 X10'3 (1.8-7.7); NEUTROPHILS % (AUTO) 70.3 % (42-75); PLATELET COUNT 306 X10'3 (140-440); RED BLOOD COUNT 3.54 X10'6 (4.20-5.60); RED CELL DISTRIBUTION WIDTH 16.3 % (11.5-14.5); WHITE BLOOD COUNT 7.5 X10'3 (4.5-11.0)
[2021-10-29 14:40] LABS: ALANINE AMINOTRANSFERASE 19 U/L (12-78); ALBUMIN 3.5 G/DL (3.4-5.0); ALKALINE PHOSPHATASE 69 IU/L (46-116); ANION GAP 7 (8-16); ASPARTATE AMINO TRANSFERASE 12 U/L (10-37); BILIRUBIN,TOTAL 0.4 MG/DL (0.1-1.0); BLOOD UREA NITROGEN 16 MG/DL (7-18); BUN/CREATININE RATIO 21.6 (6.6-38.0); CALCIUM 8.9 MG/DL (8.5-10.1); CHLORIDE 106 MMOL/L (99-107); CREATININE 0.74 MG/DL (0.40-0.90); GLUCOSE 123 MG/DL (70-104); SODIUM 142 MMOL/L (135-145); eGFR 76 ML/MIN
== END 2021-10-29 20:27 | disposition left against medical advice (07) ==
LOC: ER 13:58
DX: R06.02 Shortness of breath (principal); Z53.21 Procedure and treatment not carried out due to patient leaving prior to being seen by health care provider
CPT/HCPCS: 36415; 71045; 80053; 83880; 84484; 85025

== ENCOUNTER 2022-03-12 09:12 | Emergency (ER) | payer MEDICARE, MEDICAID ==
[~2022-03-12] VITALS: Ht 157.5 cm; Wt 57.0 kg
[2022-03-12 09:18] VITALS: BP 137/60
== END 2022-03-12 12:31 | disposition left against medical advice (07) ==
LOC: ER 09:12
DX: M54.50 Low back pain, unspecified (principal); M81.0 Age-related osteoporosis without current pathological fracture; E78.00 Pure hypercholesterolemia, unspecified; I10 Essential (primary) hypertension; I25.2 Old myocardial infarction; J44.9 Chronic obstructive pulmonary disease, unspecified; Z86.2 Personal history of diseases of the blood and blood-forming organs and certain disorders involving the immune mechanism; Z98.51 Tubal ligation status; Z98.890 Other specified postprocedural states; Z60.2 Problems related to living alone; Z88.5 Allergy status to narcotic agent; Z79.899 Other long term (current) drug therapy
CPT/HCPCS: 72131; 99284

== ENCOUNTER 2022-05-03 13:43 | Emergency (ER) | payer MEDICARE, MEDICAID ==
[~2022-05-03] VITALS: Ht 157.5 cm; Wt 54.1 kg
[2022-05-03] MEDS ORDERED: LIDOcaine 5% patch TP STA (13:54)
[2022-05-03] MEDS ORDERED: HYDROcodone/acetaminophen 5mg/325mg tablet PO ONE (13:55)
[2022-05-03 15:22] VITALS: BP 121/40
[2022-05-03] MEDS ORDERED: TRAM50TA2 PO (15:53)
== END 2022-05-03 16:30 | disposition home or self-care (01) ==
LOC: ER 13:44
DX: M54.50 Low back pain, unspecified (principal); G89.29 Other chronic pain; R25.2 Cramp and spasm; E78.00 Pure hypercholesterolemia, unspecified; I10 Essential (primary) hypertension; I25.2 Old myocardial infarction; J44.9 Chronic obstructive pulmonary disease, unspecified; Z86.2 Personal history of diseases of the blood and blood-forming organs and certain disorders involving the immune mechanism; Z98.51 Tubal ligation status; Z98.890 Other specified postprocedural states; Z60.2 Problems related to living alone; Z88.5 Allergy status to narcotic agent; Z79.899 Other long term (current) drug therapy; W19.XXXA Unspecified fall, initial encounter; Y93.89 Activity, other specified; Y92.89 Other specified places as the place of occurrence of the external cause; Y99.8 Other external cause status
CPT/HCPCS: 72131; 99284

== ENCOUNTER 2022-05-07 05:15 | Inpatient (IN) | payer MEDICARE, MEDICAID ==
[~2022-05-07] VITALS: Ht 157.5 cm; Wt 58.6 kg
[~2022-05-07 05:15] MED LIST changes: +TRAM50TA2 PO
[2022-05-07 06:03] LABS: BASOPHILS # (AUTO) 0.1 X10'3 (0-0.2); BASOPHILS % (AUTO) 1.3 % (0-1); EOSINOPHILS # (AUTO) 0.2 X10'3 (0-0.9); EOSINOPHILS % (AUTO) 4.4 % (0-6); LYMPHOCYTES # (AUTO) 0.9 X10'3 (1.1-4.8); LYMPHOCYTES % (AUTO) 17.2 % (21-51); MEAN CORPUSCULAR HEMOGLOBIN 21.6 PG (27.0-31.0); MEAN CORPUSCULAR VOLUME 72.1 FL (78-98); MEAN PLATELET VOLUME 7.5 FL (7.4-10.4); MONOCYTES # (AUTO) 0.5 X10'3 (0-0.9); MONOCYTES % (AUTO) 9.7 % (2-12); NEUTROPHILS # (AUTO) 3.5 X10'3 (1.8-7.7); NEUTROPHILS % (AUTO) 67.4 % (42-75); PLATELET COUNT 279 X10'3 (140-440); RED BLOOD COUNT 2.98 X10'6 (4.20-5.60); RED CELL DISTRIBUTION WIDTH 17.5 % (11.5-14.5); WHITE BLOOD COUNT 5.1 X10'3 (4.5-11.0)
[2022-05-07 06:12] LABS: HEMATOCRIT 21.5 % (35.0-45.0); HEMOGLOBIN 6.4 g/dl (12.0-16.0)
[2022-05-07 06:13] LABS: ALANINE AMINOTRANSFERASE 17 U/L (12-78); ALBUMIN 3.6 G/DL (3.4-5.0); ALBUMIN/GLOBULIN RATIO 1.2 (1.1-1.5); ALKALINE PHOSPHATASE 64 IU/L (46-116); ANION GAP 5 (8-16); ASPARTATE AMINO TRANSFERASE 14 U/L (10-37); BILIRUBIN,TOTAL 0.3 MG/DL (0.1-1.0); BLOOD UREA NITROGEN 17 MG/DL (7-18); BUN/CREATININE RATIO 18.5 (6.6-38.0); CHLORIDE 104 MMOL/L (99-107); CREATININE 0.92 MG/DL (0.40-0.90); GLUCOSE 109 MG/DL (70-104); SODIUM 137 MMOL/L (135-145); TOTAL CARBON DIOXIDE 28.5 MMOL/L (24-32); TOTAL PROTEIN 6.7 G/DL (6.4-8.2); eGFR 59 ML/MIN
[2022-05-07] MEDS ORDERED: ondansetron/PF 4mg/2ml inj IV PRN (10:05)
[2022-05-07] MEDS ORDERED: PERFLUTREN PROTEIN-A MICROSPHR (Optison) 0.22 MG/ML 3ML VIAL IV ONE (10:05)
[2022-05-07] MEDS ORDERED: magnesium 4gm in 100ml NS 100 ML IV PRN (10:05)
[2022-05-07] MEDS ORDERED: potassium Cl 20 mEq SR tablet PO PRN (10:05)
[2022-05-07] MEDS ORDERED: potassium Cl 40MEQ/1/2NS 520ml 520 ML IV PRN (10:05)
[2022-05-07] MEDS: normal saline 1000ml 1,000 ML IV SCH ×2 (10:05→16:25)
[2022-05-07] MEDS ORDERED: magnesium Cl slow-release 64mg tablet PO PRN (10:05)
[2022-05-07 10:31] VITALS: BP 165/67
[2022-05-07] MEDS ORDERED: DICL100G30 TOP (10:47)
[2022-05-07 10:50] VITALS: BP 164/71
[2022-05-07 11:10] VITALS: BP 156/78
[2022-05-07 11:47] LABS: POTASSIUM 3.7 MMOL/L (3.5-5.1)
[2022-05-07 12:00] VITALS: BP 158/74
[2022-05-07] MEDS ORDERED: PANT40TA54 PO (13:01)
[2022-05-07 13:19] VITALS: BP 173/94
--- NOTE | 2022-05-07 13:21 | NUR ---
patient complaining of leg pain due to her RLS. Med rec updated, Dr. Crescencio ellis.
[2022-05-07] MEDS ORDERED: ROPINIRole 1mg tablet PO SCH (13:25)
[2022-05-07] MEDS ORDERED: ROPINIRole 1mg tablet PO ONE (13:25)
[2022-05-07 14:14] LABS: % IRON SATURATION 16 % (11-46); IRON 69 UG/DL (49-151); TOTAL IRON BINDING CAPACITY 444 UG/DL (259-388)
[2022-05-07 14:28] LABS: HEMATOCRIT 26.9 % (35.0-45.0); MEAN CORPUSCULAR HEMOGLOBIN 22.3 PG (27.0-31.0); MEAN CORPUSCULAR HGB CONC 29.9 g/dL (33.0-36.5); MEAN CORPUSCULAR VOLUME 74.4 FL (78-98); MEAN PLATELET VOLUME 7.8 FL (7.4-10.4); PLATELET COUNT 309 X10'3 (140-440); RED BLOOD COUNT 3.61 X10'6 (4.20-5.60); RED CELL DISTRIBUTION WIDTH 19.4 % (11.5-14.5)
[2022-05-07] MEDS ORDERED: albuterol 2.5 MG/3 ML nebule NEB PRN (16:25)
[2022-05-07] MEDS ORDERED: HYDROcodone/acetaminophen 10/325mg tab PO PRN (16:25)
[2022-05-07] MEDS ORDERED: pantoprazole 40mg Tablet.DR PO SCH (16:25)
[2022-05-07] MEDS ORDERED: pantoprazole 40mg IV 80 MG in normal saline 100ml IV soln 100 ML IV ONE (16:35)
[2022-05-07] MEDS: carbidoba-levodopa 25-100mg tablet PO SCH ×2 (18:00→21:00)
[2022-05-07] MEDS: K and/or MAG REPLACEMENT MC SCH (20:07)
[2022-05-07] MEDS: ROPINIRole 1mg tablet PO SCH (21:59)
[2022-05-07] MEDS: atorvastatin 20mg tablet PO SCH (21:59)
[2022-05-07] MEDS: atenolol 50mg tablet PO SCH (22:00)
[2022-05-08] VITALS (12 sets, daily range): BP systolic 123–163; BP diastolic 54–89
--- NOTE | 2022-05-08 01:52 | NUR ---
Report called to Sheeba on PCU who kindly accepts report at this time.
[2022-05-08 03:05] LABS: BASOPHILS % (AUTO) 0.8 % (0-1); EOSINOPHILS # (AUTO) 0.2 X10'3 (0-0.9); EOSINOPHILS % (AUTO) 2.8 % (0-6); HEMATOCRIT 25.7 % (35.0-45.0); HEMOGLOBIN 7.8 g/dl (12.0-16.0); LYMPHOCYTES % (AUTO) 17.4 % (21-51); MEAN CORPUSCULAR HEMOGLOBIN 22.5 PG (27.0-31.0); MEAN CORPUSCULAR HGB CONC 30.2 g/dL (33.0-36.5); MEAN CORPUSCULAR VOLUME 74.4 FL (78-98); MEAN PLATELET VOLUME 7.8 FL (7.4-10.4); MONOCYTES # (AUTO) 0.6 X10'3 (0-0.9); MONOCYTES % (AUTO) 10.5 % (2-12); NEUTROPHILS # (AUTO) 3.9 X10'3 (1.8-7.7); NEUTROPHILS % (AUTO) 68.5 % (42-75); PLATELET COUNT 265 X10'3 (140-440); RED BLOOD COUNT 3.45 X10'6 (4.20-5.60); RED CELL DISTRIBUTION WIDTH 19.3 % (11.5-14.5); WHITE BLOOD COUNT 5.6 X10'3 (4.5-11.0)
[2022-05-08 03:18] LABS: ALBUMIN 3.3 G/DL (3.4-5.0); ANION GAP 12 (8-16); BLOOD UREA NITROGEN 14 MG/DL (7-18); BUN/CREATININE RATIO 20.9 (6.6-38.0); CHLORIDE 106 MMOL/L (99-107); CREATININE 0.67 MG/DL (0.40-0.90); GLUCOSE 74 MG/DL (70-104); MAGNESIUM 1.9 MG/DL (1.5-2.4); POTASSIUM 3.4 MMOL/L (3.5-5.1); SODIUM 142 MMOL/L (135-145); TOTAL CARBON DIOXIDE 24.4 MMOL/L (24-32); eGFR 85 ML/MIN
[2022-05-08] MEDS ORDERED: hydrALAZINE 20mg/ml inj. IV PRN (03:20)
[2022-05-08] MEDS ORDERED: furosemide 20 MG/2 ML vial IV ONE (03:20)
--- NOTE | 2022-05-08 03:30 | NUR ---
Patient in room PCU 3017. I have received report from IDALMIS EARL RN and had the opportunity to ask questions and assume patient care.
[2022-05-08 03:56] LABS: ANISOCYTOSIS 2+; MICROCYTOSIS 1+; PLATELET ESTIMATE NORMAL; POLYCHROMASIA 1+
[2022-05-08 03:57] LABS: HYPOCHROMASIA 1+
--- NOTE | 2022-05-08 06:52 | NUR ---
Problems reprioritized. Patient report given, questions answered & plan of care reviewed with JEANA GARCIA.
[2022-05-08] MEDS: potassium Cl 20 mEq SR tablet PO PRN ×3 (07:24→17:26)
[2022-05-08] MEDS: carbidoba-levodopa 25-100mg tablet PO SCH ×4 (07:25→20:26)
--- NOTE | 2022-05-08 07:28 | NUR ---
Unable to obtain stool sample. narendra Hernandez formed. RN & DIANA to monitor Addendum: 05/08/22 at 1504 by Adwoa Palacios RN 1504: sent stool sample to lab
[2022-05-08] MEDS: K and/or MAG REPLACEMENT MC SCH ×2 (08:00→19:34)
[2022-05-08] MEDS ORDERED: LIDOcaine Viscous 15ml cup ONE (09:30)
[2022-05-08] MEDS ORDERED: fentaNYL/PF 50MCG/1 ML 2ML syringe ONE (09:30)
[2022-05-08] MEDS ORDERED: flumazenil 0.1 mg/ml inj. IV ONE (09:30)
[2022-05-08] MEDS ORDERED: MIDAZolam 1 MG/ML 5ML VIAL ONE (09:30)
[2022-05-08] MEDS ORDERED: diphenhydrAMINE 50 mg/ml inj ONE (09:58)
[2022-05-08] MEDS: normal saline 1000ml 1,000 ML IV SCH (17:01)
--- NOTE | 2022-05-08 18:37 | NUR ---
Received pt. awake alert oriented sitting at side of bed eating 75% of pm meal. States is breathing better and feels better. Pt. is on 3L NC. Crackles auscultated right upper lobe. Encouraged to deep breathe. Will use I/S. Uses walker for BRP with assistance. Pt. has plans to go home tomorrow
[2022-05-08] MEDS: atorvastatin 20mg tablet PO SCH (20:25)
[2022-05-08] MEDS: ROPINIRole 1mg tablet PO SCH (20:25)
[2022-05-08] MEDS: atenolol 50mg tablet PO SCH (20:26)
[2022-05-09 02:40] VITALS: BP 148/67
[2022-05-09 06:30] VITALS: BP 132/63
[2022-05-09 06:36] LABS: BASOPHILS % (AUTO) 0.5 % (0-1); EOSINOPHILS # (AUTO) 0.1 X10'3 (0-0.9); EOSINOPHILS % (AUTO) 1.9 % (0-6); HEMATOCRIT 27.7 % (35.0-45.0); HEMOGLOBIN 8.4 g/dl (12.0-16.0); LYMPHOCYTES # (AUTO) 1.1 X10'3 (1.1-4.8); LYMPHOCYTES % (AUTO) 14.2 % (21-51); MEAN CORPUSCULAR HEMOGLOBIN 22.3 PG (27.0-31.0); MEAN CORPUSCULAR HGB CONC 30.2 g/dL (33.0-36.5); MEAN CORPUSCULAR VOLUME 73.8 FL (78-98); MEAN PLATELET VOLUME 7.9 FL (7.4-10.4); MONOCYTES # (AUTO) 0.9 X10'3 (0-0.9); MONOCYTES % (AUTO) 11.7 % (2-12); NEUTROPHILS # (AUTO) 5.3 X10'3 (1.8-7.7); NEUTROPHILS % (AUTO) 71.7 % (42-75); PLATELET COUNT 328 X10'3 (140-440); RED BLOOD COUNT 3.75 X10'6 (4.20-5.60); RED CELL DISTRIBUTION WIDTH 19.7 % (11.5-14.5); WHITE BLOOD COUNT 7.4 X10'3 (4.5-11.0)
[2022-05-09 06:45] LABS: ALBUMIN 3.5 G/DL (3.4-5.0); ANION GAP 8 (8-16); BLOOD UREA NITROGEN 20 MG/DL (7-18); BUN/CREATININE RATIO 34.5 (6.6-38.0); CALCIUM 9.2 MG/DL (8.5-10.1); CHLORIDE 105 MMOL/L (99-107); CREATININE 0.58 MG/DL (0.40-0.90); GLUCOSE 105 MG/DL (70-104); POTASSIUM 3.9 MMOL/L (3.5-5.1); SODIUM 141 MMOL/L (135-145); TOTAL CARBON DIOXIDE 27.6 MMOL/L (24-32); eGFR > 90 ML/MIN
[2022-05-09] MEDS: carbidoba-levodopa 25-100mg tablet PO SCH (07:53)
[2022-05-09] MEDS ORDERED: furosemide 20 MG/2 ML vial IV SCH (08:00)
[2022-05-09] MEDS ORDERED: PANT40TA54 PO (09:58)
--- NOTE | 2022-05-09 15:06 | NUR ---
pt discharged to home. pt left via cab ride provided by [facility] to home. no new medications at this time. pt will follow up with her pmd and with GI consult. pt to make her follow up appts
== END 2022-05-09 14:40 | disposition home or self-care (01) | DRG 378 ==
LOC: ER 05:15 → ED HOLD 10:15 → PCU 3S 05-08 02:34
PROVIDERS: ADMIT Internal Medicine; ATTEND Internal Medicine
PROC: 30233N1 Transfusion of Nonautologous Red Blood Cells into Peripheral Vein, Percutaneous Approach (ICD-10-PCS; 2022-05-07)
PROC: 0DB78ZX Excision of Stomach, Pylorus, Via Natural or Artificial Opening Endoscopic, Diagnostic (ICD-10-PCS; principal; 2022-05-08)
DX: K29.71 Gastritis, unspecified, with bleeding (principal); J44.1 Chronic obstructive pulmonary disease with (acute) exacerbation; J96.10 Chronic respiratory failure, unspecified whether with hypoxia or hypercapnia; K92.1 Melena; D50.9 Iron deficiency anemia, unspecified; E78.00 Pure hypercholesterolemia, unspecified; F17.210 Nicotine dependence, cigarettes, uncomplicated; G20 Parkinson's disease; K21.9 Gastro-esophageal reflux disease without esophagitis; G25.81 Restless legs syndrome; I10 Essential (primary) hypertension; I25.10 Atherosclerotic heart disease of native coronary artery without angina pectoris; I25.2 Old myocardial infarction; Z95.1 Presence of aortocoronary bypass graft; Z95.5 Presence of coronary angioplasty implant and graft; Z88.5 Allergy status to narcotic agent; Z98.51 Tubal ligation status
CPT/HCPCS: 36415; 36430; 43239; 71045; 80048; 80053; 83540; 83550; 83735; 83880; 84132; 84484; 85008; 85025; 85027; 86885; 86900; 86901; 86920; 87081; 88305; 93005; 93306; 94640; 94760; 97116; 97161; 97530; 99152; 99285; A4615; A4620; C9113; G0378; J1200; J1940; J2250; J3010; J3490; J7030; J7050; P9016

== ENCOUNTER 2022-09-14 11:25 | Emergency (ER) | payer MEDICARE, MEDICAID ==
[~2022-09-14] VITALS: Ht 157.5 cm; Wt 48.6 kg
[~2022-09-14 11:25] MED LIST changes: +DICL100G30 TOP; -PANT-47 PO; +PANT40TA54 PO; +SIMV-343 PO; -SIMV40TA PO; -SUCR1TAB34 PO; -TRAM50TA2 PO
[2022-09-14 12:04] LABS: ALANINE AMINOTRANSFERASE 8 U/L (12-78); ALBUMIN 3.9 G/DL (3.4-5.0); ALBUMIN/GLOBULIN RATIO 1.4 (1.1-1.5); ALKALINE PHOSPHATASE 71 IU/L (46-116); ANION GAP 7 (8-16); ASPARTATE AMINO TRANSFERASE 16 U/L (10-37); BILIRUBIN,TOTAL 0.4 MG/DL (0.1-1.0); BLOOD UREA NITROGEN 17 MG/DL (7-18); BUN/CREATININE RATIO 16.7 (10.0-20.0); CHLORIDE 106 MMOL/L (99-107); CREATININE 1.02 MG/DL (0.40-0.90); POTASSIUM 4.3 MMOL/L (3.5-5.1); SODIUM 141 MMOL/L (135-145); TOTAL CARBON DIOXIDE 27.7 MMOL/L (24-32); TOTAL PROTEIN 6.7 G/DL (6.4-8.2); eGFR 52 ML/MIN
[2022-09-14 12:08] LABS: GLUCOSE 137 MG/DL (70-104)
[2022-09-14 12:17] LABS: BASOPHILS # (AUTO) 0.1 X10'3 (0-0.2); BASOPHILS % (AUTO) 1.2 % (0-1); EOSINOPHILS # (AUTO) 0.3 X10'3 (0-0.9); EOSINOPHILS % (AUTO) 4.5 % (0-6); HEMATOCRIT 35.5 % (35.0-45.0); HEMOGLOBIN 11.2 g/dl (12.0-16.0); LYMPHOCYTES # (AUTO) 1.7 X10'3 (1.1-4.8); LYMPHOCYTES % (AUTO) 29.1 % (21-51); MEAN CORPUSCULAR HEMOGLOBIN 26.5 PG (27.0-31.0); MEAN CORPUSCULAR HGB CONC 31.7 g/dL (33.0-36.5); MEAN CORPUSCULAR VOLUME 83.7 FL (78-98); MEAN PLATELET VOLUME 9.1 FL (7.4-10.4); MONOCYTES # (AUTO) 0.5 X10'3 (0-0.9); MONOCYTES % (AUTO) 9.7 % (2-12); NEUTROPHILS # (AUTO) 3.2 X10'3 (1.8-7.7); NEUTROPHILS % (AUTO) 55.5 % (42-75); PLATELET COUNT 199 X10'3 (140-440); RED BLOOD COUNT 4.24 X10'6 (4.20-5.60); RED CELL DISTRIBUTION WIDTH 17.7 % (11.5-14.5); WHITE BLOOD COUNT 5.7 X10'3 (4.5-11.0)
[2022-09-14] MEDS ORDERED: ipratropium/albuterol 3ml nebule NEB ONE (12:45)
[2022-09-14] MEDS ORDERED: predniSONE 20 mg tablet PO ONE (12:45)
[2022-09-14 13:11] LABS: ANISOCYTOSIS 1+; PLATELET ESTIMATE NORMAL; ROULEAUX 1+
[2022-09-14] MEDS ORDERED: PRED20TA PO (13:38)
[2022-09-14] MEDS ORDERED: ROPINIRole 0.25mg tablet PO STA ×2 (13:38→14:13)
--- NOTE | 2022-09-14 13:43 | NUR ---
[facility] OUT. MED NOT REGISTERING IN [place]. RN FAXED PHARMACY REQ FOR MED.
--- NOTE | 2022-09-14 14:13 | NUR ---
RN CALLED PHARMACY AND THEY STATED THAT PHARMACIST ENTERED ANOTHER ORD AND TO TRY [facility] AGAIN.
--- NOTE | 2022-09-14 14:16 | NUR ---
REQUIP STILL NOT SHOWING IN [facility]. RN WILL HAVE TECH GO PICK IT UP PT NEEDS TO BE DISCHARGED.
[2022-09-14 14:20] VITALS: BP 136/65
== END 2022-09-14 14:33 | disposition home or self-care (01) ==
LOC: ER 11:26
DX: J44.1 Chronic obstructive pulmonary disease with (acute) exacerbation (principal); I10 Essential (primary) hypertension; E78.00 Pure hypercholesterolemia, unspecified; J44.9 Chronic obstructive pulmonary disease, unspecified; Z88.5 Allergy status to narcotic agent
CPT/HCPCS: 36415; 71045; 80053; 83880; 84484; 85008; 85025; 93005; 94640; 99285; J7512; 94760

== ENCOUNTER 2022-11-07 14:27 | Emergency (ER) | payer MEDICARE, MEDICAID ==
[~2022-11-07] VITALS: Ht 160 cm; Wt 105.0 kg
[~2022-11-07 14:27] MED LIST changes: -DICL100G30 TOP; +DICL100G59 TOP; +ROPI1TAB47 PO; -ROPI1TAB6 PO
[2022-11-07 14:34] VITALS: TEMP 98.5
[2022-11-07 14:57] LABS: BASOPHILS % (AUTO) 0.6 % (0-1); EOSINOPHILS # (AUTO) 0.1 X10'3 (0-0.9); EOSINOPHILS % (AUTO) 2.2 % (0-6); HEMATOCRIT 35.7 % (35.0-45.0); HEMOGLOBIN 11.4 g/dl (12.0-16.0); LYMPHOCYTES # (AUTO) 1.4 X10'3 (1.1-4.8); LYMPHOCYTES % (AUTO) 20.7 % (21-51); MEAN CORPUSCULAR HEMOGLOBIN 27.5 PG (27.0-31.0); MEAN CORPUSCULAR HGB CONC 32.1 g/dL (33.0-36.5); MEAN CORPUSCULAR VOLUME 85.8 FL (78-98); MEAN PLATELET VOLUME 8.2 FL (7.4-10.4); MONOCYTES # (AUTO) 0.6 X10'3 (0-0.9); MONOCYTES % (AUTO) 9.1 % (2-12); NEUTROPHILS # (AUTO) 4.6 X10'3 (1.8-7.7); NEUTROPHILS % (AUTO) 67.4 % (42-75); PLATELET COUNT 221 X10'3 (140-440); RED BLOOD COUNT 4.16 X10'6 (4.20-5.60); WHITE BLOOD COUNT 6.9 X10'3 (4.5-11.0)
[2022-11-07 15:07] LABS: ALANINE AMINOTRANSFERASE 18 U/L (12-78); ALBUMIN 3.6 G/DL (3.4-5.0); ALBUMIN/GLOBULIN RATIO 1.1 (1.1-1.5); ALKALINE PHOSPHATASE 57 IU/L (46-116); ANION GAP 10 (8-16); ASPARTATE AMINO TRANSFERASE 15 U/L (10-37); BILIRUBIN,TOTAL 0.3 MG/DL (0.1-1.0); BLOOD UREA NITROGEN 19 MG/DL (7-18); BUN/CREATININE RATIO 21.1 (10.0-20.0); CALCIUM 9.1 MG/DL (8.5-10.1); CHLORIDE 106 MMOL/L (99-107); GLUCOSE 137 MG/DL (70-104); POTASSIUM 3.9 MMOL/L (3.5-5.1); SODIUM 146 MMOL/L (135-145); TOTAL CARBON DIOXIDE 30.4 MMOL/L (24-32); TOTAL PROTEIN 6.8 G/DL (6.4-8.2); eGFR 60 ML/MIN
[2022-11-07 19:38] VITALS: BP 192/84; PULSE 81; RESP 16; O2SAT 97
== END 2022-11-07 19:40 | disposition home or self-care (01) ==
LOC: ER 14:28
DX: R09.02 Hypoxemia (principal); Q27.30 Arteriovenous malformation, site unspecified; I10 Essential (primary) hypertension; E78.00 Pure hypercholesterolemia, unspecified; J44.9 Chronic obstructive pulmonary disease, unspecified; D64.9 Anemia, unspecified; Z88.5 Allergy status to narcotic agent; Z79.899 Other long term (current) drug therapy; Z79.1 Long term (current) use of non-steroidal anti-inflammatories (NSAID); Z79.2 Long term (current) use of antibiotics
CPT/HCPCS: 36415; 71045; 80053; 83605; 83880; 84484; 85025; 87040; 93005; 93931; 99285

== ENCOUNTER 2023-02-05 08:34 | Emergency (ER) | payer MEDICARE, MEDICAID ==
[~2023-02-05] VITALS: Ht 157.5 cm; Wt 50.0 kg
[2023-02-05 09:38] LABS: BASOPHILS % (AUTO) 0.8 % (0-1); EOSINOPHILS # (AUTO) 0.3 X10'3 (0-0.9); EOSINOPHILS % (AUTO) 5.4 % (0-6); HEMATOCRIT 35.7 % (35.0-45.0); HEMOGLOBIN 11.3 g/dl (12.0-16.0); LYMPHOCYTES # (AUTO) 1.1 X10'3 (1.1-4.8); LYMPHOCYTES % (AUTO) 20.9 % (21-51); MEAN CORPUSCULAR HEMOGLOBIN 26.6 PG (27.0-31.0); MEAN CORPUSCULAR HGB CONC 31.8 g/dL (33.0-36.5); MEAN CORPUSCULAR VOLUME 83.9 FL (78-98); MEAN PLATELET VOLUME 8.9 FL (7.4-10.4); MONOCYTES # (AUTO) 0.5 X10'3 (0-0.9); MONOCYTES % (AUTO) 8.8 % (2-12); NEUTROPHILS # (AUTO) 3.5 X10'3 (1.8-7.7); NEUTROPHILS % (AUTO) 64.1 % (42-75); PLATELET COUNT 192 X10'3 (140-440); RED BLOOD COUNT 4.25 X10'6 (4.20-5.60); WHITE BLOOD COUNT 5.4 X10'3 (4.5-11.0)
[2023-02-05 09:48] LABS: ALANINE AMINOTRANSFERASE 15 U/L (12-78); ALBUMIN 4.2 G/DL (3.4-5.0); ALBUMIN/GLOBULIN RATIO 1.5 (1.1-1.5); ALKALINE PHOSPHATASE 56 IU/L (46-116); ANION GAP 5 (8-16); ASPARTATE AMINO TRANSFERASE 18 U/L (10-37); BILIRUBIN,TOTAL 0.3 MG/DL (0.1-1.0); BLOOD UREA NITROGEN 21 MG/DL (7-18); BUN/CREATININE RATIO 20.4 (10.0-20.0); CALCIUM 9.3 MG/DL (8.5-10.1); CHLORIDE 103 MMOL/L (99-107); CREATININE 1.03 MG/DL (0.40-0.90); GLUCOSE 104 MG/DL (70-104); POTASSIUM 4.5 MMOL/L (3.5-5.1); SODIUM 140 MMOL/L (135-145); TOTAL CARBON DIOXIDE 31.7 MMOL/L (24-32); eGFR 52 ML/MIN
[2023-02-05 09:57] LABS: PRO BRAIN NATRIURETIC PEPTIDE 688 PG/ML (0-450)
[2023-02-05] MEDS ORDERED: methylPREDNISolone sod succ 125mg/2ml vial IV ONE (10:05)
[2023-02-05] MEDS ORDERED: albuterol 2.5 MG/3 ML nebule NEB ONE (10:05)
[2023-02-05 10:26] VITALS: PULSE 86; RESP 20; O2SAT 98
[2023-02-05 10:32] VITALS: PULSE 72; RESP 13; O2SAT 100
[2023-02-05] MEDS ORDERED: PRED20TA PO (10:54)
--- NOTE | 2023-02-05 11:02 | NUR ---
I agree with Shebli Ames, [facility] assessment.
--- NOTE | 2023-02-05 11:15 | NUR ---
PT REPORTS SHE DOES NOT REQUIRE OXYGEN WHEN TRAVELING
[2023-02-05 11:21] VITALS: BP 158/76; PULSE 69; RESP 20; TEMP 98.4
--- NOTE | 2023-02-05 11:21 | NUR ---
[facility] CONTACTED FOR TRANSPORTATION HOME FROM ER. ETA 15-20 MINS
[2023-02-05 11:25] VITALS: O2SAT 98
== END 2023-02-05 11:27 | disposition home or self-care (01) ==
LOC: ER 08:35
DX: J44.1 Chronic obstructive pulmonary disease with (acute) exacerbation (principal); E78.00 Pure hypercholesterolemia, unspecified; I25.2 Old myocardial infarction; J44.9 Chronic obstructive pulmonary disease, unspecified; Z95.5 Presence of coronary angioplasty implant and graft; Z98.51 Tubal ligation status; Z88.8 Allergy status to other drugs, medicaments and biological substances; Z79.899 Other long term (current) drug therapy
CPT/HCPCS: 36415; 71045; 80053; 83880; 84484; 85025; 93005; 94640; 96374; 99285; J2930; 94760; A6449

== ENCOUNTER 2023-07-29 13:05 | Emergency (ER) | payer MEDICARE, MEDICAID ==
[~2023-07-29] VITALS: Ht 157.5 cm; Wt 50.0 kg
[~2023-07-29 13:05] MED LIST changes: +LEVO-65 PO
[2023-07-29 13:59] VITALS: BP 131/72; PULSE 77; TEMP 97.8; O2SAT 99
[2023-07-29 14:04] VITALS: RESP 16
== END 2023-07-29 16:52 | disposition home or self-care (01) ==
LOC: ER 13:06
DX: S09.90XA Unspecified injury of head, initial encounter (principal); E78.00 Pure hypercholesterolemia, unspecified; I10 Essential (primary) hypertension; J44.9 Chronic obstructive pulmonary disease, unspecified; K21.9 Gastro-esophageal reflux disease without esophagitis; Z88.5 Allergy status to narcotic agent; Z79.899 Other long term (current) drug therapy; Z79.2 Long term (current) use of antibiotics; W19.XXXA Unspecified fall, initial encounter; Y93.89 Activity, other specified; Y92.89 Other specified places as the place of occurrence of the external cause; Y99.8 Other external cause status
CPT/HCPCS: 70450; 99284

== ENCOUNTER 2024-07-01 18:40 | Inpatient (IN) | payer MEDICARE, MEDICAID ==
[~2024-07-01] VITALS: Ht 162.6 cm; Wt 48.0 kg
[~2024-07-01 18:40] MED LIST changes: -LEVO-65 PO
[2024-07-01 19:22] LABS: BASOPHILS % (AUTO) 0.5 % (0-1); EOSINOPHILS # (AUTO) 0.1 X10'3 (0-0.9); EOSINOPHILS % (AUTO) 1.8 % (0-6); HEMATOCRIT 35.6 % (35.0-45.0); HEMOGLOBIN 11.4 g/dl (12.0-16.0); LYMPHOCYTES # (AUTO) 1.4 X10'3 (1.1-4.8); LYMPHOCYTES % (AUTO) 19.8 % (21-51); MEAN CORPUSCULAR HEMOGLOBIN 28.9 PG (27.0-31.0); MEAN CORPUSCULAR VOLUME 90.3 FL (78-98); MEAN PLATELET VOLUME 9.1 FL (7.4-10.4); MONOCYTES # (AUTO) 0.7 X10'3 (0-0.9); MONOCYTES % (AUTO) 9.4 % (2-12); NEUTROPHILS # (AUTO) 4.8 X10'3 (1.8-7.7); NEUTROPHILS % (AUTO) 68.5 % (42-75); PLATELET COUNT 297 X10'3 (140-440); RED BLOOD COUNT 3.94 X10'6 (4.20-5.60); WHITE BLOOD COUNT 7.1 X10'3 (4.5-11.0)
[2024-07-01 19:33] LABS: BILIRUBIN,URINE NEGATIVE (Neg); CLARITY,URINE CLEAR (Clear); COLOR,URINE YELLOW (Yellow); GLUCOSE, URINE NEGATIVE (Neg); KETONES,URINE TRACE mg/dl (Neg); LEUKOCYTE ESTERASE ,URINE NEGATIVE (Neg); NITRITES, URINE NEGATIVE (Neg); OCCULT BLOOD,URINE NEGATIVE (Neg); PH,URINE 5.5 (4.8-8.0); PROTEIN,URINE NEGATIVE (Neg); UROBILINOGEN,URINE 0.2 E.U/dL (0.2-1.0)
[2024-07-01 19:35] LABS: ALANINE AMINOTRANSFERASE 6 U/L (12-78); ALBUMIN 3.6 G/DL (3.4-5.0); ALKALINE PHOSPHATASE 124 IU/L (46-116); ANION GAP 7 (8-16); ASPARTATE AMINO TRANSFERASE 14 U/L (10-37); BILIRUBIN,TOTAL 0.2 MG/DL (0.1-1.0); BLOOD UREA NITROGEN 34 MG/DL (7-18); BUN/CREATININE RATIO 32.7 (10.0-20.0); CALCIUM 8.6 MG/DL (8.5-10.1); CHLORIDE 110 MMOL/L (99-107); CREATININE 1.04 MG/DL (0.40-0.90); GLUCOSE 97 MG/DL (70-104); POTASSIUM 5.1 MMOL/L (3.5-5.1); SODIUM 141 MMOL/L (135-145); TOTAL CARBON DIOXIDE 24.1 MMOL/L (24-32); TOTAL PROTEIN 7.1 G/DL (6.4-8.2); eCRCL 33 ML/MIN; eGFR 51 ML/MIN
[2024-07-01 19:42] LABS: UA COLLECTION TYPE OTHER
[2024-07-01 19:43] LABS: PRO BRAIN NATRIURETIC PEPTIDE 884 PG/ML (0-450)
[2024-07-02] MEDS ORDERED: magnesium sulf-water 4G/100mL 100 ML IV PRN (20:35)
[2024-07-02] MEDS ORDERED: magnesium hydroxide 30ml (MOM) UD suspension PO PRN (20:35)
[2024-07-02] MEDS ORDERED: morphine 2 MG/ML inj. syringe IV PRN ×2 (20:35)
[2024-07-02] MEDS ORDERED: magnesium sulf-water 2g/50mL 50 ML IV PRN (20:35)
[2024-07-02] MEDS ORDERED: potassium Cl 20 mEq SR tablet PO PRN ×2 (20:35)
[2024-07-02] MEDS ORDERED: albuterol 2.5 MG/3 ML nebule NEB PRN (20:35)
[2024-07-02] MEDS ORDERED: acetaminophen 325mg tablet PO PRN ×2 (20:35)
[2024-07-02] MEDS ORDERED: potassium Cl 40MEQ/1/2NS 520ml 520 ML IV PRN (20:35)
[2024-07-02] MEDS ORDERED: magnesium Cl slow-release 64mg tablet PO PRN (20:35)
[2024-07-02] MEDS ORDERED: mag hydrox/Alum hydrox/simeth 30ml oral suspension PO PRN (20:35)
[2024-07-02 21:15] VITALS: PULSE 81; RESP 16; O2SAT 92
[2024-07-02] MEDS ORDERED: dextrose 50%-water 50ml dispensing syringe IV PRN (22:25)
[2024-07-02] MEDS ORDERED: glucagon, human recombinant 1mg kit SUBCUT PRN (22:25)
[2024-07-02] MEDS ORDERED: DEXTROSE 15 GM of carb/4 tabs (each vial/BOTTLE has 4 tablets) PO PRN (22:25)
[2024-07-02 22:26] VITALS: BP 106/55; PULSE 76; RESP 14; TEMP 98.6; O2SAT 96
[2024-07-02] MEDS: DEXTROSE 15 GM of carb/4 tabs (each vial/BOTTLE has 4 tablets) PO PRN (22:39)
[2024-07-03 05:24] LABS: BASOPHILS % (AUTO) 0.3 % (0-1); EOSINOPHILS # (AUTO) 0.1 X10'3 (0-0.9); EOSINOPHILS % (AUTO) 1.3 % (0-6); HEMATOCRIT 34.2 % (35.0-45.0); HEMOGLOBIN 11.2 g/dl (12.0-16.0); LYMPHOCYTES # (AUTO) 1.9 X10'3 (1.1-4.8); LYMPHOCYTES % (AUTO) 24.8 % (21-51); MEAN CORPUSCULAR HEMOGLOBIN 28.9 PG (27.0-31.0); MEAN CORPUSCULAR HGB CONC 32.8 g/dL (33.0-36.5); MEAN CORPUSCULAR VOLUME 88.1 FL (78-98); MEAN PLATELET VOLUME 9.2 FL (7.4-10.4); MONOCYTES # (AUTO) 0.8 X10'3 (0-0.9); MONOCYTES % (AUTO) 10.9 % (2-12); NEUTROPHILS # (AUTO) 4.8 X10'3 (1.8-7.7); NEUTROPHILS % (AUTO) 62.7 % (42-75); PLATELET COUNT 290 X10'3 (140-440); RED BLOOD COUNT 3.88 X10'6 (4.20-5.60); RED CELL DISTRIBUTION WIDTH 16.7 % (11.5-14.5); WHITE BLOOD COUNT 7.6 X10'3 (4.5-11.0)
[2024-07-03 05:48] LABS: ALBUMIN 3.2 G/DL (3.4-5.0); ANION GAP 8 (8-16); BLOOD UREA NITROGEN 21 MG/DL (7-18); BUN/CREATININE RATIO 35.6 (10.0-20.0); CALCIUM 8.7 MG/DL (8.5-10.1); CHLORIDE 109 MMOL/L (99-107); CREATININE 0.59 MG/DL (0.40-0.90); GLUCOSE 63 MG/DL (70-104); MAGNESIUM 1.9 MG/DL (1.5-2.4); POTASSIUM 4.4 MMOL/L (3.5-5.1); SODIUM 142 MMOL/L (135-145); TOTAL CARBON DIOXIDE 25.4 MMOL/L (24-32); eCRCL 58 ML/MIN; eGFR > 90 ML/MIN
[2024-07-03] MEDS: dextrose 50%-water 50ml dispensing syringe IV PRN (05:59)
[2024-07-03 06:00] VITALS: BP 120/53; PULSE 81; RESP 20; TEMP 98.4; O2SAT 96
[2024-07-03] MEDS: K and/or MAG REPLACEMENT MC SCH (07:26)
[2024-07-03] MEDS: carbidoba-levodopa 25-100mg tablet PO SCH ×2 (08:30→18:18)
[2024-07-03] MEDS: pantoprazole 40mg Tablet.DR PO SCH (08:30)
[2024-07-03] MEDS: enoxaparin 40mg/0.4ml syringe SUBCUT SCH (08:31)
[2024-07-03] MEDS: ringers solution, lacted 1,000 ML IV SCH (08:31)
[2024-07-03] MEDS: docusate sod 100mg capsule PO SCH (08:31)
[2024-07-03 13:14] VITALS: BP 106/50; PULSE 91; RESP 14; TEMP 98; O2SAT 93
[2024-07-03] MEDS: carbidoba-levodopa 25-100mg tablet PO ONE (13:40)
[2024-07-03 18:00] VITALS: BP 114/62; PULSE 100; RESP 17; TEMP 98.1; O2SAT 94
[2024-07-03] MEDS ORDERED: ipratropium/albuterol 3ml nebule NEB PRN (18:25)
[2024-07-03] MEDS: atorvastatin 20mg tablet PO SCH (19:52)
[2024-07-03] MEDS: ROPINIRole 1mg tablet PO SCH (19:53)
[2024-07-03] MEDS ORDERED: atenolol 50mg tablet PO SCH (21:00)
[2024-07-03 21:01] VITALS: PULSE 93; RESP 16; O2SAT 91
[2024-07-03 22:00] VITALS: BP 117/54; PULSE 90; RESP 16; TEMP 97.7; O2SAT 93
[2024-07-03] MEDS: HYDROcodone/acetaminophen 10/325mg tab PO PRN (22:46)
[2024-07-04] VITALS (11 sets, daily range): BP systolic 105–152; BP diastolic 59–76; PULSE 68–100; RESP 14–20; TEMP 97.4–98.3; O2SAT 86–97
[2024-07-04 05:13] LABS: BASOPHILS % (AUTO) 0.4 % (0-1); EOSINOPHILS # (AUTO) 0.2 X10'3 (0-0.9); HEMATOCRIT 32.3 % (35.0-45.0); HEMOGLOBIN 10.4 g/dl (12.0-16.0); LYMPHOCYTES # (AUTO) 1.7 X10'3 (1.1-4.8); LYMPHOCYTES % (AUTO) 22.3 % (21-51); MEAN CORPUSCULAR HEMOGLOBIN 28.9 PG (27.0-31.0); MEAN CORPUSCULAR HGB CONC 32.2 g/dL (33.0-36.5); MEAN CORPUSCULAR VOLUME 89.9 FL (78-98); MEAN PLATELET VOLUME 9.1 FL (7.4-10.4); MONOCYTES # (AUTO) 0.7 X10'3 (0-0.9); MONOCYTES % (AUTO) 9.3 % (2-12); PLATELET COUNT 255 X10'3 (140-440); RED BLOOD COUNT 3.59 X10'6 (4.20-5.60); WHITE BLOOD COUNT 7.6 X10'3 (4.5-11.0)
[2024-07-04 05:26] LABS: APTT 26 SECONDS (22-32); PROTHROMBIN TIME 10.5 SECONDS (9.0-12.0)
[2024-07-04 05:41] LABS: ANION GAP 3 (8-16); BLOOD UREA NITROGEN 27 MG/DL (7-18); BUN/CREATININE RATIO 48.2 (10.0-20.0); CALCIUM 8.8 MG/DL (8.5-10.1); CHLORIDE 109 MMOL/L (99-107); CHOLESTEROL 113 MG/DL (0-200); CREATININE 0.56 MG/DL (0.40-0.90); GLUCOSE 116 MG/DL (70-104); HDL CHOLESTEROL 39 MG/DL (35-60); MAGNESIUM 1.7 MG/DL (1.5-2.4); SODIUM 142 MMOL/L (135-145); TOTAL CARBON DIOXIDE 30.1 MMOL/L (24-32); eCRCL 61 ML/MIN; eGFR > 90 ML/MIN
[2024-07-04 05:42] LABS: CHOL/HDL RATIO 2.9 (0.00-4.99); LDL CHOLESTEROL 59 MG/DL (50-100); THYROID STIMULATING HORMONE 0.57 ulU/ml (0.34-4.50); TRIGLYCERIDES 136 MG/DL (20-135)
[2024-07-04 06:06] LABS: HEMOGLOBIN A1C 5.7 % (4.5-6.2)
[2024-07-04] MEDS: ondansetron/PF 4mg/2ml inj IV PRN (22:07)
[2024-07-05 05:24] LABS: BASOPHILS % (AUTO) 0.4 % (0-1); EOSINOPHILS # (AUTO) 0.2 X10'3 (0-0.9); EOSINOPHILS % (AUTO) 2.9 % (0-6); HEMATOCRIT 30.9 % (35.0-45.0); LYMPHOCYTES # (AUTO) 1.4 X10'3 (1.1-4.8); LYMPHOCYTES % (AUTO) 21.6 % (21-51); MEAN CORPUSCULAR HGB CONC 32.4 g/dL (33.0-36.5); MEAN CORPUSCULAR VOLUME 89.7 FL (78-98); MEAN PLATELET VOLUME 9.2 FL (7.4-10.4); MONOCYTES # (AUTO) 0.6 X10'3 (0-0.9); MONOCYTES % (AUTO) 8.8 % (2-12); NEUTROPHILS # (AUTO) 4.2 X10'3 (1.8-7.7); NEUTROPHILS % (AUTO) 66.3 % (42-75); PLATELET COUNT 211 X10'3 (140-440); RED BLOOD COUNT 3.44 X10'6 (4.20-5.60); RED CELL DISTRIBUTION WIDTH 17.5 % (11.5-14.5); WHITE BLOOD COUNT 6.3 X10'3 (4.5-11.0)
[2024-07-05 05:37] LABS: ALBUMIN 2.8 G/DL (3.4-5.0); ANION GAP 1 (8-16); BLOOD UREA NITROGEN 15 MG/DL (7-18); BUN/CREATININE RATIO 28.8 (10.0-20.0); CALCIUM 8.3 MG/DL (8.5-10.1); CHLORIDE 109 MMOL/L (99-107); CREATININE 0.52 MG/DL (0.40-0.90); GLUCOSE 100 MG/DL (70-104); MAGNESIUM 1.6 MG/DL (1.5-2.4); POTASSIUM 4.6 MMOL/L (3.5-5.1); SODIUM 144 MMOL/L (135-145); TOTAL CARBON DIOXIDE 33.9 MMOL/L (24-32); eCRCL 65 ML/MIN; eGFR > 90 ML/MIN
[2024-07-05 06:00] VITALS: BP 122/62; PULSE 97; RESP 18; TEMP 97.1; O2SAT 91
[2024-07-05 08:00] VITALS: RESP 16; O2SAT 96
== END 2024-07-05 14:10 | DRG 884 ==
LOC: ER 18:41 → ED HOLD 07-02 20:36 → SUR 3N 07-02 22:25
PROVIDERS: ADMIT Internal Medicine Critical Care Medicine; ATTEND Family Medicine
DX: R54 Age-related physical debility (principal); M25.559 Pain in unspecified hip; E78.00 Pure hypercholesterolemia, unspecified; J44.9 Chronic obstructive pulmonary disease, unspecified; G20.A1 Parkinson's disease without dyskinesia, without mention of fluctuations; F02.80 Dementia in other diseases classified elsewhere, unspecified severity, without behavioral disturbance, psychotic disturbance, mood disturbance, and anxiety; I10 Essential (primary) hypertension; K21.9 Gastro-esophageal reflux disease without esophagitis; Z88.5 Allergy status to narcotic agent; Z79.899 Other long term (current) drug therapy; Z95.5 Presence of coronary angioplasty implant and graft; Z95.1 Presence of aortocoronary bypass graft; I25.2 Old myocardial infarction; D64.9 Anemia, unspecified
CPT/HCPCS: 36415; 70450; 71045; 80048; 80053; 80061; 81003; 82948; 83036; 83605; 83735; 83880; 84132; 84145; 84443; 84484; 85025; 85610; 85730; 87040; 87081; 93005; 94760; 97110; 97116; 97161; 97530; 99285; A4615; C1758; G0378; J1650; J2405; J3490; J7120

== ENCOUNTER 2024-07-24 08:52 | Inpatient (IN) | payer MEDICARE, MEDICAID ==
[~2024-07-24] VITALS: Ht 167.6 cm; Wt 45.3 kg
[2024-07-24] MEDS: morphine 2 MG/ML inj. syringe IV ONE (10:41)
[2024-07-24] MEDS: ondansetron/PF 4mg/2ml inj IV ONE (10:41)
[2024-07-24 10:51] VITALS: PULSE 98; RESP 24; O2SAT 85
[2024-07-24 12:33] VITALS: PULSE 96; RESP 12; O2SAT 83
[2024-07-24 12:34] LABS: BASOPHILS % (AUTO) 0.2 % (0-1); EOSINOPHILS % (AUTO) 0.1 % (0-6); LYMPHOCYTES # (AUTO) 1.4 X10'3 (1.1-4.8); LYMPHOCYTES % (AUTO) 6.6 % (21-51); MEAN PLATELET VOLUME 9.1 FL (7.4-10.4); MONOCYTES # (AUTO) 1.5 X10'3 (0-0.9); MONOCYTES % (AUTO) 7.1 % (2-12); NEUTROPHILS # (AUTO) 17.8 X10'3 (1.8-7.7); PLATELET COUNT 593 X10'3 (140-440); WHITE BLOOD COUNT 20.7 X10'3 (4.5-11.0)
[2024-07-24 13:13] LABS: ALBUMIN 2.8 G/DL (3.4-5.0); ANION GAP 3 (8-16); BLOOD UREA NITROGEN 32 MG/DL (7-18); CALCIUM 9.5 MG/DL (8.5-10.1); CHLORIDE 106 MMOL/L (99-107); CREATININE 0.82 MG/DL (0.40-0.90); GLUCOSE 170 MG/DL (70-104); POTASSIUM 4.7 MMOL/L (3.5-5.1); PRO BRAIN NATRIURETIC PEPTIDE 21478 PG/ML (0-450); SODIUM 148 MMOL/L (135-145); TOTAL CARBON DIOXIDE 39.3 MMOL/L (24-32); eCRCL 39 ML/MIN; eGFR 67 ML/MIN
[2024-07-24 13:16] LABS: RED BLOOD COUNT 3.84 X10'6 (4.20-5.60)
[2024-07-24 13:17] LABS: HEMATOCRIT 33.8 % (35.0-45.0); HEMOGLOBIN 11.1 g/dl (12.0-16.0); MEAN CORPUSCULAR HEMOGLOBIN 28.8 PG (27.0-31.0); MEAN CORPUSCULAR HGB CONC 32.7 g/dL (33.0-36.5); MEAN CORPUSCULAR VOLUME 88.1 FL (78-98); RED CELL DISTRIBUTION WIDTH 17.1 % (11.5-14.5)
[2024-07-24 13:50] LABS: ANISOCYTOSIS 2+; NUCLEATED RED BLOOD CELLS 1 /100WBC (0-0); PLATELET ESTIMATE INCREASED; TOTAL CELLS COUNTED 100
[2024-07-24] MEDS ORDERED: LORazepam 2 mg/ml vial IV PRN (15:05)
[2024-07-24] MEDS ORDERED: morphine 10mg/0.5ml (conc. morphine) oral syringe PO PRN (15:05)
[2024-07-24 16:48] VITALS: PULSE 94; RESP 8; O2SAT 96
[2024-07-24 18:57] VITALS: PULSE 87; RESP 16; O2SAT 84
[2024-07-24] MEDS: morphine 10mg/ml inj. IV PRN (20:52)
[2024-07-24 21:30] VITALS: RESP 10
[2024-07-24 22:00] VITALS: BP 68/36; PULSE 82; RESP 6; TEMP 98.7; O2SAT 69
== END 2024-07-25 00:55 | DRG 871 ==
LOC: ER 08:53 → ED HOLD 11:36 → UNDOADMIN 11:36 → ED HOLD 15:16 → EDBEDREQSVC 17:14 → ORTHO 4S 18:55 → ED HOLD 18:55
PROVIDERS: ADMIT Internal Medicine; ATTEND Internal Medicine
DX: A41.9 Sepsis, unspecified organism (principal); J15.69 Pneumonia due to other Gram-negative bacteria; J96.01 Acute respiratory failure with hypoxia; J15.9 Unspecified bacterial pneumonia; J44.0 Chronic obstructive pulmonary disease with (acute) lower respiratory infection; Z66 Do not resuscitate; E78.00 Pure hypercholesterolemia, unspecified; I10 Essential (primary) hypertension; G20.A1 Parkinson's disease without dyskinesia, without mention of fluctuations; F02.80 Dementia in other diseases classified elsewhere, unspecified severity, without behavioral disturbance, psychotic disturbance, mood disturbance, and anxiety; K21.9 Gastro-esophageal reflux disease without esophagitis; Z51.5 Encounter for palliative care; I25.2 Old myocardial infarction; Z88.5 Allergy status to narcotic agent; Z79.899 Other long term (current) drug therapy; Z87.891 Personal history of nicotine dependence; Z95.1 Presence of aortocoronary bypass graft; Z95.5 Presence of coronary angioplasty implant and graft
CPT/HCPCS: 36415; 71045; 80048; 82948; 83880; 84145; 85007; 85025; 94760; 96374; 96375; 99285; A4620; G0378; J2270; J2274; J2405